=== PATIENT | female | born 1935 | race Caucasian/White ===

== ENCOUNTER → 2018-05-20 10:58 | Outpatient (CLI) | payer MEDICARE, OTHER, SELFPAY ==
--- NOTE | 2018-05-20 12:54 | NEURO ---
NCS and/or EMG Patient Report Ordering Doctor: Chacorta Carnes DATE OF SERVICE: 05/20/18 Alvina Rosario is an 83-year-old female presents for electrodiagnostic testing of the upper limbs. She has chief complaint of numbness and tingling in both hands, worse on the right side. Electrodiagnostic findings: Right median motor nerve demonstrates prolonged distal latency with reduced amplitude. Proximal response could not be obtained. Left median motor nerve demonstrates prolonged distal latency with borderline reduced amplitude. Proximal response could not be obtained. Normal ulnar motor response bilaterally. Prolonged right median F wave. Absent right median sensory latency at the wrist. Prolonged left median sensory response. Normal ulnar and radial sensory responses. Needle EMG testing shows no evidence of denervation with normal motor unit action potentials. Electrodiagnostic impression: This is an abnormal study in the upper limbs. 1. Electrodiagnostic findings demonstrate bilateral median mononeuropathy. This is consistent with a moderate to advanced right carpal tunnel syndrome and a moderate left carpal tunnel syndrome If there are any further questions, please do not hesitate to contact me
== END ==
PROVIDERS: Family Provider Internal Medicine; PCP Internal Medicine; Visit Provider Physician Assistant
DX: R20.2 Paresthesia of skin (principal)
CPT/HCPCS: 95886; 95911

== ENCOUNTER → 2018-05-28 15:33 | Outpatient (CLI) | payer MEDICARE, OTHER, SELFPAY ==
--- NOTE | 2018-05-28 15:39 | RAD_ITS ---
STUDY: X-RAY CHEST REASON FOR EXAM: Female, 83 years old. Night sweats. TECHNIQUE: PA and lateral chest COMPARISON: None. FINDINGS: There is general is mild pulmonary hyperlucency and hyperinflation with flattening of hemidiaphragms, increased AP diameter of the chest, mild diffuse coarsening of the interstitium, and a pattern consistent with underlying COPD/emphysema. Choroid smoking history. Lungs otherwise clear. Normal cardiomediastinal silhouette, virginie and pleural margins. There is no evidence of mediastinal lymphadenopathy. No acute osseous or upper abdominal process. RAD/Chest PA and Lateral IMPRESSION: No acute cardiopulmonary process. Electronically Signed: Eliazar Bruce, at 17:09 EDT Tel , Service support ,
== END ==
PROVIDERS: Family Provider Family Medicine; PCP Family Medicine; Visit Provider Family Medicine
DX: R61 Generalized hyperhidrosis (principal)
CPT/HCPCS: 71046

== ENCOUNTER → 2018-05-29 08:56 | Outpatient (CLI) | payer MEDICARE, OTHER, SELFPAY ==
[2018-05-29 10:31] LABS: Erythrocyte Sedimentation Rate 9 mm/hr (0-30)
[2018-05-29 10:33] LABS: Absolute Lymphocyte Count 1.78 X10^3/ul (0.83-4.51); Absolute Neutrophil Count 2.6 X10^3/uL (2.0-7.7); Basophil# 0.03 X10^3/uL; Basophil% 0.6 % (0-1); Eosinophil# 0.48 X10^3/uL; Eosinophils% 8.9 % (0-5); Hematocrit 39.5 % (37-47); Hemoglobin 12.9 g/dl (12.0-15.0); Lymphocyte # 1.78 X10^3/ul (4.0); Lymphocyte % 33.1 % (19-41); Mean Corp Hgb Conc 32.7 g/gl (32-36); Mean Corpuscular Hgb 29.8 pg (27.0-32.0); Mean Corpuscular Volume 91.2 fL (81-99); Mean Platelet Vol. 10.7 fl (6.2-12.0); Monocyte# 0.46 X10^3/uL; Monocyte% 8.6 % (0-10); Neutrophil # 2.61 X10^3/uL (2.7-7.7); Neutrophil % 48.6 % (47-70); POSITIVE COUNT NO; POSITIVE DIFFERENTIAL NO; POSITIVE MORPHOLOGY NO; Platelet Count 193 K/mm3 (150-450); RBC Distribution Width CV 14.1 % (11.6-14.6); RBC Distribution Width SD 47.6 fl (35.1-43.9); Red Blood Count 4.33 M/mm3 (4.2-5.4); White Blood Count 5.4 K/mm3 (4.4-11.0)
[2018-05-29 10:47] LABS: Microalbumin,Random Urine 8.9 mg/L (NO RANGE EST.); Microalbumin:Creatinine Ratio 6.9 mg/g CRE (<30 mg/g CRE)
[2018-05-29 10:57] LABS: PTHIN 54.9 pg/mL (18.4-80.1); Vitamin B12 401 pg/mL (211-911)
[2018-05-29 11:00] LABS: ALB/GLOB Ratio 1.2 RATIO (0.9-2.4); AST(SGOT) 16 U/L (15-37); Alanine Aminotransfer ALT/SGPT 20 U/L (13-56); Albumin, Serum 3.7 g/dL (3.2-5.0); Alkaline Phosphatase 69 U/L (45-117); Anion Gap 8 (5-15); BUN 18 mg/dL (7-18); BUN/Creat Ratio 20.6 RATIO (10-20); CRP < 2.90 mg/L (0.0-3.0); Calcium,Total 8.6 mg/dL (8.5-10.1); Chloride 111 mmol/L (98-107); Cholesterol 222 mg/dL (200); Creatinine, Serum 0.87 mg/dL (0.55-1.02); EST Glomerular Filtration Rate 66 mL/min (>60); Est Glom Filt Rate - Afr Amer 80 mL/min (>60); Globulin 3.1 g/dL (2.2-4.2); Glucose 79 mg/dL (74-106); High Density Lipoprotein 70 mg/dL; Potassium 4.3 mmol/L (3.5-5.1); Protein, Total 6.8 g/dL (6.4-8.2); Rheumatoid Factor < 10.0 IU/mL (<15); Sodium Level 144 mmol/L (136-145); T4 Free Direct 1.03 ng/dL (0.76-1.46); Thyroid Stim Hormone (TSH) 2.54 uIU/mL (0.358-3.74); Triglycerides 63 mg/dL; Very Low Density Lipoprotein 13 mg/dL (5-40)
[2018-06-04 04:08] LABS: PROEL- Albumin 4.3 g/dL (2.9-4.4); PROEL- Alpha-1 Globulin 0.2 g/dL (0.0-0.4); PROEL- Alpha-2 Globulin 0.6 g/dL (0.4-1.0); PROEL- Beta Globulin 0.9 g/dL (0.7-1.3); PROEL- Gamma Globulin 0.6 g/dL (0.4-1.8); PROEL- Globulin, Total 2.2 g/dL (2.2-3.9); PROEL- TOTAL PROTEIN 6.5 g/dL (6.0-8.5); QNTFERON TB Ag Minus Nil Value 0 IU/mL (.); QNTFERON TB Ag Value 0.06 IU/mL (.); QNTFERON TB Mitogen Value > 10.00 IU/mL (.); QNTFERON TB Nil Value 0.06 IU/mL (.)
[2018-06-05 01:16] LABS: Rapid Plasmin Reagin (RPR) NONREACTIVE (NONREACTIVE)
[2018-06-05 08:18] LABS: Hep C Antibodies <0.1 s/co ratio (0.0-0.9)
[2018-06-05 08:19] LABS: QNTIFERON TB Gold Negative (Negative)
== END ==
PROVIDERS: Family Provider Family Medicine; PCP Family Medicine; Visit Provider Family Medicine
DX: E03.9 Hypothyroidism, unspecified (principal); E78.00 Pure hypercholesterolemia, unspecified; R61 Generalized hyperhidrosis; M54.9 Dorsalgia, unspecified; G56.03 Carpal tunnel syndrome, bilateral upper limbs
CPT/HCPCS: 80053; 80061; 82043; 82570; 82607; 83970; 84165; 84439; 84443; 85025; 85652; 86140; 86431; 86480; 86592; 86803

== ENCOUNTER → 2018-07-14 09:02 | Outpatient (CLI) | payer MEDICARE, OTHER, SELFPAY ==
--- NOTE | 2018-07-14 12:53 | PFT ---
INTRODUCTION: The patient is an 83-year-old female that presents for pulmonary function testing secondary to a diagnosis of COPD. Respiratory therapy reports good patient effort. Bronchodilators were used during testing. INTERPRETATION: Forced expiration spirometry demonstrates no evidence of a large airways obstructive ventilatory defect. There was no significant response to aerosolized bronchodilators, based upon strict ATS criteria. Spirograms are of good quality and plateau normally. Body plethysmography was performed and reveals lung volumes to be within normal limits. Diffusing capacity by single breath CO is within normal limits at 76% of predicted. IMPRESSION: Grossly normal pulmonary function testing. There is no evidence of COPD.
== END ==
PROVIDERS: Family Provider Family Medicine; PCP Family Medicine; Referring Provider Family Medicine; Visit Provider Family Medicine
DX: J44.9 Chronic obstructive pulmonary disease, unspecified (principal)
CPT/HCPCS: 94060; 94726; 94729

== ENCOUNTER → 2018-08-27 07:47 | Outpatient (CLI) | payer MEDICARE, OTHER, SELFPAY ==
--- NOTE | 2018-08-27 07:50 | CT_ITS ---
STUDY: CT CHEST WITHOUT CONTRAST REASON FOR EXAM: Female, 83 years old. Chronic cough, difficulty breathing, cough worse in the mornings. Possible COPD. Nonsmoker. Prior cholecystectomy. RADIATION DOSAGE (If Supplied By Facility): CTDIvol = ( 8.65 ) mGy, DLP = ( 300.5 ) mGycm TECHNIQUE: Transaxial imaging was performed without the administration of intravenous contrast material. : Sagittal 2-D MPR Individualized dose optimization techniques were used for this CT. COMPARISON: Chest x-ray 05/28/2018 FINDINGS: Supraclavicular: No acute process. Thoracic body wall soft tissues: No acute process. Upper abdomen: Limited evaluation. Cholecystectomy. No acute process. Osseous structures: No acute process. Thoracic kyphosis, mild thoracic spondylosis without stenosis. There is evidence of prominent low cervical spondylosis incompletely characterized at the apex of the field of view. Mediastinum: Normal esophagus. There is no mediastinal or hilar mass or lymphadenopathy. Heart: Normal heart size without pericardial effusion. Minimal coronary calcifications are visible in the proximal LAD. Aorta: Nondilated, minimal atherosclerosis. Pulmonary arteries: Nondilated. Lungs: Mild apical scarring. Normal airways. There is mild generalized pulmonary hyperlucency which may reflect mild COPD without lidia features of centrilobular or paraseptal emphysema. CT/Chest without Contrast IMPRESSION: No acute cardiopulmonary process is evident. Mild generalized pulmonary hyperlucency potentially reflecting mild COPD. No apparent acute abnormality of the airways. No infiltrate of the lungs. No evidence of acute pneumonia or bronchiolitis. Minimal coronary calcifications of the proximal LAD. Electronically Signed: Eliazar Bruce MD at 12:04 EST Tel , Service support ,
== END ==
PROVIDERS: Family Provider Family Medicine; PCP Family Medicine; Referring Provider Family Medicine; Visit Provider Family Medicine
DX: R05 Cough (principal)
CPT/HCPCS: 71250

== ENCOUNTER → 2018-11-10 16:45 | Outpatient (CLI) | payer MEDICARE, OTHER, SELFPAY ==
[2018-09-29 11:14] VITALS: BMI 27.4
[2018-11-10 17:46] LABS: Hematocrit 40.6 % (37-47); Hemoglobin 13.2 g/dl (12.0-15.0); Mean Corp Hgb Conc 32.5 g/gl (32-36); Mean Corpuscular Hgb 29.9 pg (27.0-32.0); Mean Corpuscular Volume 92.1 fL (81-99); Mean Platelet Vol. 10.4 fl (6.2-12.0); Platelet Count 275 K/mm3 (150-450); RBC Distribution Width CV 13.4 % (11.6-14.6); RBC Distribution Width SD 44.1 fl (35.1-43.9); Red Blood Count 4.41 M/mm3 (4.2-5.4); White Blood Count 6.7 K/mm3 (4.4-11.0)
[2018-11-10 17:47] LABS: Scan Indicated on CBC? Y/N NO
[2018-11-10 18:19] LABS: Thyroid Stim Hormone (TSH) 2.07 uIU/mL (0.358-3.74)
== END ==
PROVIDERS: Family Provider Family Medicine; PCP Family Medicine; Referring Provider Family Medicine; Visit Provider Nurse Practitioner Family
DX: R53.83 Other fatigue (principal)
CPT/HCPCS: 36415; 84443; 85027

== ENCOUNTER → 2019-04-29 | Outpatient (CLI) | payer MEDICARE, OTHER, SELFPAY ==
[2019-02-05 10:47] VITALS: BMI 28.1
[2019-04-29 17:25] LABS: Absolute Lymphocyte Count 1.69 X10^3/uL (0.83-4.51); Absolute Neutrophil Count 3.3 X10^3/uL (2.0-7.7); Basophil# 0.04 X10^3/uL; Basophil% 0.7 % (0-1); Eosinophil# 0.33 X10^3/uL; Eosinophils% 5.6 % (0-5); Hematocrit 40.9 % (37-47); Hemoglobin 13.2 g/dL (12.0-15.0); Lymphocyte # 1.69 X10^3/ul (4.0); Lymphocyte % 28.5 % (19-41); Mean Corp Hgb Conc 32.3 g/dL (32-36); Mean Corpuscular Hgb 30.1 pg (27.0-32.0); Mean Corpuscular Volume 93.2 fL (81-99); Mean Platelet Vol. 10.8 fl (6.2-12.0); Monocyte# 0.54 X10^3/uL; Monocyte% 9.1 % (0-10); NRBC Flagged by Analyzer 0 % (0-5); Neutrophil # 3.32 X10^3/uL (2.7-7.7); Neutrophil % 55.8 % (47-70); Platelet Count 207 K/mm3 (150-450); RBC Distribution Width SD 47.9 fl (35.1-43.9); Red Blood Count 4.39 M/mm3 (4.2-5.4); White Blood Count 5.9 K/mm3 (4.4-11.0)
[2019-04-29 17:55] LABS: Vitamin B12 700 pg/mL (211-911)
[2019-04-29 18:43] LABS: CRP < 2.90 mg/L (0.0-3.0); Ferritin 299 ng/mL (8-252); Free T3 2.5 pg/mL (2.18-3.98); Lipase 142 U/L (73-393); T4 Free Direct 1.05 ng/dL (0.76-1.46); Thyroid Stim Hormone (TSH) 2.23 uIU/mL (0.358-3.74)
[2019-05-05 09:57] LABS: Zinc, Plasma or Serum 93 ug/dL (56-134)
[2019-05-09 09:10] LABS: Immunoglobulin E 102 IU/mL (6-495)
== END | disposition home or self-care (01) ==
PROVIDERS: Family Provider Family Medicine; PCP Family Medicine; Referring Provider Family Medicine; Visit Provider Family Medicine
DX: R61 Generalized hyperhidrosis (principal); E03.9 Hypothyroidism, unspecified; R19.5 Other fecal abnormalities; R53.81 Other malaise; R53.83 Other fatigue
CPT/HCPCS: 36415; 82607; 82728; 82746; 82785; 83690; 84439; 84443; 84481; 84630; 85025; 86140

== ENCOUNTER → 2019-04-30 | Outpatient (CLI) | payer MEDICARE, OTHER, SELFPAY ==
[2019-02-05 10:47] VITALS: BMI 28.1
== END | disposition home or self-care (01) ==
LOC: LABSPEC 14:52
PROVIDERS: Family Provider Family Medicine; PCP Family Medicine; Referring Provider Family Medicine; Visit Provider Family Medicine
DX: R19.5 Other fecal abnormalities (principal)
CPT/HCPCS: 83630

== ENCOUNTER 2019-07-15 13:36 | Emergency (ER) | payer MEDICARE, OTHER, SELFPAY ==
[2019-02-05 10:47] VITALS: BMI 28.1
[2019-07-15 13:37] VITALS: BP 103/61; PULSE 56; RESP 18; TEMP 36.6; O2SAT 96; BMI 29.4
--- NOTE | 2019-07-15 14:01 | EKG12_ITS ---
Test Reason : CP Blood Pressure : / mmHG Vent. Rate : 057 BPM Atrial Rate : 057 BPM P-R Int : 152 ms QRS Dur : 084 ms QT Int : 444 ms P-R-T Axes : 028 -19 023 degrees QTc Int : 432 ms Sinus bradycardia Otherwise normal ECG Confirmed by TIA MAYORGA, MY ([id number]), newspaper or periodical editor INDY HAMPTON ([id number]) on 07/20/2019 2:36:34 PM Referred By: GISEL Confirmed By:MY WEBER MD
--- NOTE | 2019-07-15 14:04 | RAD_ITS ---
STUDY: X-RAY CHEST REASON FOR EXAM: Female, 84 years old. Chest pain. TECHNIQUE: Single AP portable view of the chest. COMPARISON: Comparison is made with prior study dated May 28, 2018. FINDINGS: EKG electrodes are seen. Scattered calcified granulomas. The lungs are clear. There is no demonstrated pleural abnormality. Normal size heart. Normal mediastinum and virginie. Normal visualized pulmonary arteries. There is atherosclerotic calcification of the aortic arch with tortuosity. There are diffuse degenerative changes of the visualized thoracic spine. Normal visualized ribs, clavicles, and shoulders. There is no demonstrated abnormality of the visualized soft tissue structures of the upper abdomen. RAD/Chest 1 View (Portable) IMPRESSION: No acute abnormality is seen. Electronically Signed: José Levin, at 14:29 EST , Service support ,
--- NOTE | 2019-07-15 14:06 | ED.VIS.GEN ---
History of Present Illness Chief Complaint: Chest Pain Informant: Patient Onset: Today Timing: Waxes and wanes Current Severity: Mild Maximum Severity: Moderate Narrative: Patient presents with chest pain which she describes as spasms up to the center of her chest and into her jaw. She states she first noted it last night after she was laying down in bed. She felt chills at the same time and took some aspirin. Today around 12:00 she developed recurrent symptoms. She tried aspirin but noted no improvement. She states her throat felt very tight and she got short of breath and anxious. EMS was called. She was given 1 nitroglycerin with squad and her blood pressure decreased to 80 over palp. Blood pressure has responded well with IV fluids. Patient denies significant cardiac history. She states she has had a stress test and heart cath in the past. She does report a history of reflux but just takes Tums when she feels like she needs it. Past Medical History - Allergies and Home Meds Allergies/Adverse Reactions: Allergies ciprofloxacin Allergy (Severe, Verified 07/15/19 13:41) headaches melatonin Adverse Reaction (Severe, Verified 07/15/19 13:41) Anaphylaxis Vvpzpln-Pmk-Kxh Reductase Inhibitor Adverse Reaction (Severe, Verified 07/15/19 13:41) confusion Primary Care Physician: Abdiel Salazar MD [Primary Care Provider] - Prior records reviewed: Yes Past Medical History: - - Reviewed Lives: Spouse/ Significant Other Smoking Status: Never smoker Review of Systems General: Reports: Chills. Denies: Fever Eyes: Denies: Visual changes - bilaterally ENT: Denies: Bilateral ear pain Cardiovascular: Reports: Chest pain. Denies: Palpitations, Heart racing Respiratory: Reports: Dyspnea. Denies: Cough Gastrointestinal: Reports: Abdominal pain - Epigastric pain. Denies: Vomiting, Diarrhea Genitourinary: Denies: Dysuria Musculoskeletal: Reports: Neck pain - Chest pain up into her jaw Skin: Denies: Rash Neurological: Denies: Headache Hematologic: Denies: Easy bruising Allergy: Denies: Uticaria Physical Exam Vital Signs/Narrative: Vital Signs Temp Pulse Resp BP Pulse Ox 07/15/19 13:37 97.9 F 56 L 18 103/61 96 Inital Vital Signs reviewed: Yes General: Well nourished, Well developed Head: Normocephalic ENT: Moist mucous membranes Neck: Supple Cardiovascular: Regular rate, Regular rhythm Respiratory: No distress, CTA bilaterally Abdomen: Soft, Nontender, Hypoactive bowel sounds Extremities: Nontender Skin: Normal color, No rash Neurological: Alert, Oriented x3 Psychological: Normal affect Diagnostic/Tx/Re-eval Impressions Chest X-Ray 07/15/19 14:04 IMPRESSION: No acute abnormality is seen. Electronically Signed: José Levin, at 14:29 EST , Service support , 07/15/19 14:04 Chest 1 View (Portable) [RAD] Stat Laboratory Results 07/15/19 07/15/19 07/15/19 13:55 13:55 17:15 WBC 8.5 RBC 4.14 L Hgb 12.6 Hct 37.8 MCV 91.3 MCH 30.4 MCHC 33.3 RDW Std Deviation 45.8 H RDW Coeff of Kimber 13.4 Plt Count 230 MPV 10.4 Immature Gran % (Auto) 0.600 Neut % (Auto) 54.4 Lymph % (Auto) 34.4 Woodford % (Auto) 7.9 Eos % (Auto) 2.1 Baso % (Auto) 0.6 Absolute Neuts (auto) 4.6 Absolute Lymphs (auto) 2.93 Nucleated RBC % 0 Sodium 141 Potassium 3.7 Chloride 108 H Carbon Dioxide 22.0 Anion Gap 11 BUN 23 H Creatinine 0.96 Estim Creat Clear Calc 36.09 Est GFR (MDRD) Af Amer 72 Est GFR (MDRD) Non-Af 59 L BUN/Creatinine Ratio 24.1 H Glucose 125 H Calcium 9.4 Troponin I < 0.015 < 0.015 - EKG Initial EKG Interpretation: Sinus Bradycardia - Sinus bradycardia 57 bpm with no acute ischemia. Follow-up EKG Interpretation: Sinus Bradycardia - Sinus bradycardia 57 bpm with no acute ischemia. - Medical Decision Making Patient was given aspirin by EMS prior to arrival. She was given IV fluids and a dose of IV Protonix while here. On repeat evaluation she is resting pain-free. I advised her at this time I cannot guarantee that her symptoms are not cardiac in nature. I recommended observation overnight for cycling of enzymes and probable stress test in the morning. She is refusing admission at this time because it will only be an observation stay and will not be covered with her Medicare. She did agree to stay for 3-hour repeat study. Repeat troponin remains less than 0.015 and repeat EKG is unchanged. Patient's is picking up Nexium at the pharmacy for her to take for reflux. She will return for any worsening symptoms or concerns. ED Disposition - Plan for ED Patient: Disposition: Home or Assisted Living Diagnosis: Chest pain Instructions: CHEST PAIN, Uncertain Cause Referrals: Abdiel Salazar MD [Primary Care Provider] - As soon as possible
[2019-07-15 14:26] LABS: Absolute Lymphocyte Count 2.93 X10^3/uL (0.83-4.51); Absolute Neutrophil Count 4.6 X10^3/uL (2.0-7.7); Basophil# 0.05 X10^3/uL; Basophil% 0.6 % (0-1); Eosinophil# 0.18 X10^3/uL; Eosinophils% 2.1 % (0-5); Hematocrit 37.8 % (37-47); Hemoglobin 12.6 g/dL (12.0-15.0); Lymphocyte # 2.93 X10^3/ul (4.0); Lymphocyte % 34.4 % (19-41); Mean Corp Hgb Conc 33.3 g/dL (32-36); Mean Corpuscular Hgb 30.4 pg (27.0-32.0); Mean Corpuscular Volume 91.3 fL (81-99); Mean Platelet Vol. 10.4 fl (6.2-12.0); Monocyte# 0.67 X10^3/uL; Monocyte% 7.9 % (0-10); NRBC Flagged by Analyzer 0 % (0-5); Neutrophil # 4.64 X10^3/uL (2.7-7.7); Neutrophil % 54.4 % (47-70); Platelet Count 230 K/mm3 (150-450); RBC Distribution Width CV 13.4 % (11.6-14.6); RBC Distribution Width SD 45.8 fl (35.1-43.9); Red Blood Count 4.14 M/mm3 (4.2-5.4); White Blood Count 8.5 K/mm3 (4.4-11.0)
[2019-07-15 14:38] LABS: Anion Gap 11 (5-15); BUN 23 mg/dL (7-18); BUN/Creat Ratio 24.1 RATIO (10-20); Calcium,Total 9.4 mg/dL (8.5-10.1); Chloride 108 mmol/L (98-107); Creatinine, Serum 0.96 mg/dL (0.55-1.02); EST Glomerular Filtration Rate 59 mL/min (>60); Est Glom Filt Rate - Afr Amer 72 mL/min (>60); Estimated Creatinine Clearance 36.09 ml/min; Glucose 125 mg/dL (74-106); Potassium 3.7 mmol/L (3.5-5.1); Sodium Level 141 mmol/L (136-145)
[2019-07-15 14:55] VITALS: BP 113/64; PULSE 50; RESP 18; O2SAT 97
[2019-07-15] MEDS: 0.9% Normal Saline 1,000 ML 150 ML IV (15:17)
--- NOTE | 2019-07-15 15:52 | EKG12_ITS ---
Test Reason : REPEAT EKG Blood Pressure : / mmHG Vent. Rate : 057 BPM Atrial Rate : 057 BPM P-R Int : 140 ms QRS Dur : 086 ms QT Int : 446 ms P-R-T Axes : 039 -15 030 degrees QTc Int : 434 ms Sinus bradycardia Low voltage QRS Cannot rule out Anterior infarct , age undetermined Abnormal ECG Confirmed by TIA MAYORGA, MY ([id number]), production editor INDY HAMPTON ([id number]) on 07/20/2019 2:37:38 PM Referred By: Confirmed By:MY WEBER MD
[2019-07-15 17:32] VITALS: BP 132/67; PULSE 69; RESP 18; O2SAT 99
== END 2019-07-15 18:45 | disposition home or self-care (01) ==
PROVIDERS: Emergency Provider Emergency Medicine; Family Provider Family Medicine; PCP Family Medicine
DX: R07.9 Chest pain, unspecified (principal)
CPT/HCPCS: 71045; 80048; 84484; 85025; 93005; 96361; 96365; 99285; J7030

== ENCOUNTER → 2019-07-23 | Outpatient (CLI) | payer MEDICARE, OTHER, SELFPAY ==
[2019-07-15 13:37] VITALS: BMI 29.4
[2019-07-23 14:25] LABS: Absolute Lymphocyte Count 1.68 X10^3/uL (0.83-4.51); Basophil# 0.05 X10^3/uL; Basophil% 0.6 % (0-1); Eosinophil# 0.17 X10^3/uL; Eosinophils% 2.2 % (0-5); Hematocrit 38.9 % (37-47); Hemoglobin 12.4 g/dL (12.0-15.0); Lymphocyte # 1.68 X10^3/ul (4.0); Lymphocyte % 21.7 % (19-41); Mean Corp Hgb Conc 31.9 g/dL (32-36); Mean Corpuscular Hgb 29.8 pg (27.0-32.0); Mean Corpuscular Volume 93.5 fL (81-99); Mean Platelet Vol. 10.9 fl (6.2-12.0); Monocyte% 10.3 % (0-10); NRBC Flagged by Analyzer 0 % (0-5); Neutrophil # 4.98 X10^3/uL (2.7-7.7); Neutrophil % 64.3 % (47-70); Platelet Count 239 K/mm3 (150-450); RBC Distribution Width CV 14.3 % (11.6-14.6); RBC Distribution Width SD 48.9 fl (35.1-43.9); Red Blood Count 4.16 M/mm3 (4.2-5.4); White Blood Count 7.8 K/mm3 (4.4-11.0)
[2019-07-23 14:28] LABS: ALB/GLOB Ratio 1.2 RATIO (0.9-2.4); AST(SGOT) 15 U/L (15-37); Alanine Aminotransfer ALT/SGPT 26 U/L (13-56); Albumin, Serum 3.8 g/dL (3.2-5.0); Alkaline Phosphatase 72 U/L (45-117); Anion Gap 7 (5-15); BUN 27 mg/dL (7-18); Calcium,Total 8.8 mg/dL (8.5-10.1); Chloride 108 mmol/L (98-107); Creatinine, Serum 1.04 mg/dL (0.55-1.02); EST Glomerular Filtration Rate 54 mL/min (>60); Est Glom Filt Rate - Afr Amer 65 mL/min (>60); Globulin 3.2 g/dL (2.2-4.2); Glucose 94 mg/dL (74-106); Sodium Level 141 mmol/L (136-145)
[2019-07-25 20:10] LABS: Alternaria tenuis <0.10 kU/L (Class 0); Ash, White <0.10 kU/L (Class 0); Aspergillus fumigatus <0.10 kU/L (Class 0); Bermuda Grass <0.10 kU/L (Class 0); Birch <0.10 kU/L (Class 0); Black Walnut <0.10 kU/L (Class 0); Cat Hair / Dander,Stand <0.10 kU/L (Class 0); Cedar, Mountain <0.10 kU/L (Class 0); Cladosporium herbarum <0.10 kU/L (Class 0); Cockroach, American <0.10 kU/L (Class 0); Cottonwood <0.10 kU/L (Class 0); D farinae Mite <0.10 kU/L (Class 0); D pteronyssinus <0.10 kU/L (Class 0); Dog Epithelia <0.10 kU/L (Class 0); Elm, American White <0.10 kU/L (Class 0); Immunoglobulin E 179 IU/mL (6-495); Maple/Box Elder <0.10 kU/L (Class 0); Mulberry, White <0.10 kU/L (Class 0); Oak, White <0.10 kU/L (Class 0); Pecan <0.10 kU/L (Class 0); Penicillium Notatum <0.10 kU/L (Class 0); Pigweed, Rough <0.10 kU/L (Class 0); Ragweed, Short/Common <0.10 kU/L (Class 0); Russian Thistle <0.10 kU/L (Class 0); Sheep Sorrel <0.10 kU/L (Class 0); Sycamore, American <0.10 kU/L (Class 0); Timothy Grass <0.10 kU/L (Class 0)
[2019-07-26 04:10] LABS: Beef <0.10 kU/L (Class 0); Chocolate <0.10 kU/L (Class 0); Corn <0.10 kU/L (Class 0); Egg, Whole 0.29 kU/L (Class 0/I); Milk (Cow) <0.10 kU/L (Class 0); Peanut <0.10 kU/L (Class 0); Pork <0.10 kU/L (Class 0); Soybean <0.10 kU/L (Class 0); Wheat <0.10 kU/L (Class 0)
[2019-07-26 13:42] LABS: Mouse Urine <0.10 kU/L (Class 0)
[2019-07-26 13:43] LABS: Pecan <0.10 kU/L (Class 0)
== END | disposition home or self-care (01) ==
LOC: MFPLAB 11:29
PROVIDERS: Family Provider Family Medicine; PCP Family Medicine; Referring Provider Family Medicine; Visit Provider Family Medicine
DX: T78.3XXA Angioneurotic edema, initial encounter (principal)
CPT/HCPCS: 36415; 80053; 82785; 85025; 86003; 86005

== ENCOUNTER → 2019-10-05 14:13 | Outpatient (CLI) | payer MEDICARE, OTHER, SELFPAY ==
[2019-10-05 16:32] LABS: Vitamin D,25 Hydroxy 33.5 ng/mL (29.95-100.01)
[2019-10-08 13:21] LABS: Lyme AB/Total Immuno < 0.91 ISR (0.00-0.90)
[2019-10-08 19:29] LABS: C1 EST Inhibitor, Functional >92 (.)
== END ==
PROVIDERS: PCP Family Medicine; Referring Provider Specialist; Visit Provider Specialist
DX: J30.9 Allergic rhinitis, unspecified (principal); J45.50 Severe persistent asthma, uncomplicated; J32.9 Chronic sinusitis, unspecified; E55.9 Vitamin D deficiency, unspecified; E07.9 Disorder of thyroid, unspecified; R06.00 Dyspnea, unspecified; T78.3XXD Angioneurotic edema, subsequent encounter; T78.09XD Anaphylactic reaction due to other food products, subsequent encounter; Z91.038 Other insect allergy status
CPT/HCPCS: 36415; 82306; 83520; 86160; 86161; 86618

== ENCOUNTER → 2020-05-26 11:12 | Outpatient (CLI) | payer MEDICARE, OTHER, SELFPAY ==
[2020-05-26 12:33] LABS: Erythrocyte Sedimentation Rate 37 mm/hr (0-30)
[2020-05-26 12:36] LABS: Absolute Lymphocyte Count 1.67 X10^3/uL (0.83-4.51); Absolute Neutrophil Count 5.1 X10^3/uL (2.0-7.7); Basophil# 0.06 X10^3/uL; Basophil% 0.7 % (0-1); Eosinophil# 0.24 X10^3/uL; Hematocrit 37.1 % (37-47); Hemoglobin 12.2 g/dL (12.0-15.0); Lymphocyte # 1.67 X10^3/ul (4.0); Lymphocyte % 20.6 % (19-41); Mean Corp Hgb Conc 32.9 g/dL (32-36); Mean Corpuscular Hgb 29.5 pg (27.0-32.0); Mean Corpuscular Volume 89.8 fL (81-99); Mean Platelet Vol. 10.5 fl (6.2-12.0); Monocyte# 0.98 X10^3/uL; Monocyte% 12.1 % (0-10); NRBC Flagged by Analyzer 0 % (0-5); Neutrophil # 5.13 X10^3/uL (2.7-7.7); Neutrophil % 63.2 % (47-70); Platelet Count 234 K/mm3 (150-450); RBC Distribution Width CV 13.5 % (11.6-14.6); RBC Distribution Width SD 44.5 fl (35.1-43.9); Red Blood Count 4.13 M/mm3 (4.2-5.4); White Blood Count 8.1 K/mm3 (4.4-11.0)
[2020-05-26 12:52] LABS: ALB/GLOB Ratio 0.9 RATIO (0.9-2.4); AST(SGOT) 20 U/L (15-37); Alanine Aminotransfer ALT/SGPT 43 U/L (13-56); Albumin, Serum 3.5 g/dL (3.2-5.0); Alkaline Phosphatase 77 U/L (45-117); Anion Gap 6 (5-15); BUN 17 mg/dL (7-18); Calcium,Total 8.8 mg/dL (8.5-10.1); Chloride 106 mmol/L (98-107); EST Glomerular Filtration Rate 64 mL/min (>60); Est Glom Filt Rate - Afr Amer 77 mL/min (>60); Globulin 3.7 g/dL (2.2-4.2); Glucose 95 mg/dL (74-106); Potassium 3.9 mmol/L (3.5-5.1); Protein, Total 7.2 g/dL (6.4-8.2); Sodium Level 139 mmol/L (136-145)
== END ==
PROVIDERS: PCP Family Medicine; Referring Provider Family Medicine; Visit Provider Family Medicine
DX: K57.32 Diverticulitis of large intestine without perforation or abscess without bleeding (principal)
CPT/HCPCS: 36415; 80053; 85025; 85652; 86140

== ENCOUNTER → 2020-06-16 14:46 | Outpatient (CLI) | payer MEDICARE, OTHER, SELFPAY ==
--- NOTE | 2020-06-16 14:51 | CT_ITS ---
STUDY: CT ABDOMEN AND PELVIS WITHOUT CONTRAST REASON FOR EXAM: Female, 85 years old. Left lower quadrant pain history of diverticulitis, History of appendectomy hysterectomy and cholecystectomy. RADIATION DOSAGE (If Supplied By Facility): CTDIvol = ( 6.37 ) mGy, DLP = ( 301.00 ) mGycm TECHNIQUE: Transaxial images were obtained from the dome of the diaphragm to the symphysis pubis without oral contrast, and without intravenous contrast. Sagittal and coronal images were reconstructed. Individualized dose optimization techniques were used for this CT. COMPARISON: None. FINDINGS: Lung bases are clear. Solid organs are intact. Gallbladder is removed. There is no intestinal obstruction. There is minor left lower quadrant sigmoid diverticulitis without perforation or abscess with extensive sigmoid diverticulosis. Uterus and appendix are removed. CT/Abdomen/Pelvis without Cont IMPRESSION: Minimal left lower quadrant sigmoid diverticulitis. Electronically Signed: Gerardo Baig, at 15:37 EDT Tel , Service support ,
== END ==
PROVIDERS: PCP Family Medicine; Referring Provider Family Medicine; Visit Provider Family Medicine
DX: K57.32 Diverticulitis of large intestine without perforation or abscess without bleeding (principal)
CPT/HCPCS: 74176

== ENCOUNTER 2020-06-29 13:30 | Outpatient (RCR) | payer MEDICARE, OTHER, SELFPAY ==
--- NOTE | 2020-06-16 08:08 | HP.OTEVAL_ITS ---
Patient's Visit Information SIERRA PEREZ is a 85 year old F, referred to Occupational Therapy by Dr. Fabien Lowry MD, with a diagnosis of CTR. Date of Evaluation: 06/08/20 Occupational Therapist: Jeannine Win, OTR/Silvestre, CHT - Subjective This 85 year old female was seen for OT eval with dx of right CTS and s/p 7 weeks and 6 days s/p from a right CTR. pt states she continues to have pain and sorness at the incision and on her wrist- pt states fabric even will increase her pain when she tries to sleep. Pt states she had issues with tingling/numbness for about two years. 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 Goal:: Pt will demo an increase in wrist ROM equal to unaffected wrist to return pt to PLOF with grooming, dressing and home mtg tasks by D/C. Goal:: Pt will report pain no greater than 1/10 with use of affected hand with BADLs and IADLs by d/c. Goal:: Pt will demo understanding of scar mtg. by end of 2nd session to increase tissue extensibility to limit scar adhesions and allow full tendons function by d/c. Pt will demo a decrease is scar sensitivity to tolerate wearing long sleeve shirts by D/c. - Rehabilitation General Assessment: pt demo with a weak right lamp cleaner strength and scar pain limiting use of right UE with ADLs and IADLs. pt would benefit from skilled OT services 1-2x week for 4 weeks to retun pt to PLOF. Rehabilitation Potential: Good - Anticipated Interventions A/AAROM/PROM, Strengthening, Scar Care, Desensitization, Modalities, Joint Protection/Energy Conservation, Education re assistive Equipment - Visit Plan Frequency: 1-2x /Week Duration: 4 Weeks TEXT: Thank you for the opportunity to evaluate your patient. For Medicare and Medicare HMO plans, please review the plan of care and approve it. It will need to be FAXED BACK to us at [phone] for Medicare purposes. Please let me know if there are questions or concerns regarding this plan of care. Physician Signature: Date:
--- NOTE | 2020-06-29 14:04 | HP.OTDCSUM_ITS ---
It has been my pleasure to treat SIERRA PEREZ under orders from Dr. Fabien Lowry MD, for the diagnosis of CTR for a total of 4 visit(s). Please see the following information for a summary of their discharge status. 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 Goal:: Pt will demo an increase in wrist ROM equal to unaffected wrist to return pt to PLOF with grooming, dressing and home mtg tasks by D/C. Goal:: Pt will report pain no greater than 1/10 with use of affected hand with BADLs and IADLs by d/c. Goal:: Pt will demo understanding of scar mtg. by end of 2nd session to increase tissue extensibility to limit scar adhesions and allow full tendons function by d/c. Pt will demo a decrease is scar sensitivity to tolerate wearing long sleeve shirts by D/c. Plan: D/C Discharge Comments: pt was seen for 4 visits- states she is feeling better and her scar is not as sore. pt reports she is ind. with ADLs and IADls at this time and agree to cont with HEP of scar mtg. pt has met OT goals and is dc at this time If there are questions or concerns regarding this patient's occupational t herapy, please fell free to call me at [phone]. Thank you for the referral of this patient. Sincerely, Jeannine Win, OTR/L, CHT
== END 2020-06-29 19:00 | disposition home or self-care (01) ==
LOC: OT 13:30
PROVIDERS: PCP Family Medicine; Referring Provider Orthopaedic Surgery; Visit Provider Orthopaedic Surgery
DX: G56.01 Carpal tunnel syndrome, right upper limb (principal)
CPT/HCPCS: 97035; 97110; 97166; 97530

== ENCOUNTER → 2020-07-11 15:46 | Outpatient (CLI) | payer MEDICARE, OTHER, SELFPAY ==
[2020-07-11 17:29] LABS: Absolute Lymphocyte Count 1.84 X10^3/uL (0.83-4.51); Absolute Neutrophil Count 2.9 X10^3/uL (2.0-7.7); Basophil# 0.06 X10^3/uL; Eosinophil# 0.28 X10^3/uL; Eosinophils% 4.9 % (0-5); Hematocrit 38.6 % (37-47); Hemoglobin 12.2 g/dL (12.0-15.0); Lymphocyte # 1.84 X10^3/ul (4.0); Lymphocyte % 32.1 % (19-41); Mean Corp Hgb Conc 31.6 g/dL (32-36); Mean Corpuscular Hgb 29.2 pg (27.0-32.0); Mean Corpuscular Volume 92.3 fL (81-99); Mean Platelet Vol. 10.6 fl (6.2-12.0); Monocyte# 0.61 X10^3/uL; Monocyte% 10.6 % (0-10); NRBC Flagged by Analyzer 0 % (0-5); Neutrophil # 2.92 X10^3/uL (2.7-7.7); Neutrophil % 50.9 % (47-70); Platelet Count 230 K/mm3 (150-450); RBC Distribution Width CV 14.3 % (11.6-14.6); RBC Distribution Width SD 49.2 fl (35.1-43.9); Red Blood Count 4.18 M/mm3 (4.2-5.4); White Blood Count 5.7 K/mm3 (4.4-11.0)
[2020-07-11 17:41] LABS: Erythrocyte Sedimentation Rate 11 mm/hr (0-30)
[2020-07-11 18:03] LABS: ALB/GLOB Ratio 1.2 RATIO (0.9-2.4); AST(SGOT) 21 U/L (15-37); Alanine Aminotransfer ALT/SGPT 29 U/L (13-56); Albumin, Serum 3.8 g/dL (3.2-5.0); Alkaline Phosphatase 90 U/L (45-117); Anion Gap 5 (5-15); BUN 25 mg/dL (7-18); BUN/Creat Ratio 25.5 RATIO (10-20); CRP < 2.90 mg/L (0.0-3.0); Calcium,Total 9.3 mg/dL (8.5-10.1); Chloride 109 mmol/L (98-107); Creatinine, Serum 0.98 mg/dL (0.55-1.02); EST Glomerular Filtration Rate 57 mL/min (>60); Est Glom Filt Rate - Afr Amer 69 mL/min (>60); Globulin 3.2 g/dL (2.2-4.2); Glucose 89 mg/dL (74-106); Lipase 180 U/L (73-393); Potassium 4.2 mmol/L (3.5-5.1); Sodium Level 140 mmol/L (136-145)
== END ==
PROVIDERS: PCP Family Medicine; Referring Provider Family Medicine; Visit Provider Family Medicine
DX: R10.13 Epigastric pain (principal)
CPT/HCPCS: 36415; 80053; 83690; 85025; 85652; 86140

== ENCOUNTER → 2020-07-12 17:37 | Outpatient (CLI) | payer MEDICARE, OTHER, SELFPAY ==
[2020-07-18 06:31] LABS: H. PYLORI STOOL AG Negative (Negative)
== END ==
PROVIDERS: PCP Family Medicine; Referring Provider Family Medicine; Visit Provider Family Medicine
DX: R10.13 Epigastric pain (principal)

== ENCOUNTER 2021-11-05 12:14 | Outpatient (CLI) | payer MEDICARE, OTHER, SELFPAY ==
--- NOTE | 2021-11-05 12:17 | RAD_ITS ---
STUDY: X-RAY CHEST REASON FOR EXAM: Female, 86 years old. COUGH TECHNIQUE: Single AP portable view of the chest. COMPARISON: July 15, 2019 FINDINGS: The lungs are clear and expanded. There is no demonstrated pleural abnormality. Normal size heart. Normal mediastinum and virginie. Normal visualized pulmonary arteries. There is atherosclerotic calcification of the aortic arch with tortuosity. There are diffuse degenerative changes of the visualized thoracic spine. Normal visualized ribs, clavicles, and shoulders. Right upper quadrant surgical clips are present. There is no demonstrated abnormality of the visualized soft tissue structures of the upper abdomen. RAD/Chest PA and Lateral IMPRESSION: Degenerative changes, as described above. No demonstrated acute cardiopulmonary process. Electronically Signed: Chicho Jay MD at 14:03 EST ,
[2021-11-05 15:29] LABS: Absolute Lymphocyte Count 1.26 X10^3/uL (0.83-4.51); Absolute Neutrophil Count 8.1 X10^3/uL (2.0-7.7); Basophil# 0.06 X10^3/uL; Basophil% 0.5 % (0-1); Eosinophil# 0.47 X10^3/uL; Eosinophils% 4.1 % (0-5); Hematocrit 34.7 % (37-47); Hemoglobin 11.3 g/dL (12.0-15.0); Lymphocyte # 1.26 X10^3/ul (0.83-4.51); Mean Corp Hgb Conc 32.6 g/dL (32-36); Mean Corpuscular Hgb 29.4 pg (27.0-32.0); Mean Corpuscular Volume 90.1 fL (81-99); Mean Platelet Vol. 10.3 fl (6.2-12.0); Monocyte# 1.31 X10^3/uL; Monocyte% 11.4 % (0-10); NRBC Flagged by Analyzer 0 % (0-5); Neutrophil # 8.05 X10^3/uL (2.7-7.7); Neutrophil % 70.4 % (47-70); Platelet Count 308 K/mm3 (150-450); RBC Distribution Width CV 13.1 % (11.6-14.6); RBC Distribution Width SD 43.2 fl (35.1-43.9); Red Blood Count 3.85 M/mm3 (4.2-5.4); White Blood Count 11.5 K/mm3 (4.4-11.0)
[2021-11-05 16:13] LABS: ALB/GLOB Ratio 0.7 RATIO (0.9-2.4); AST(SGOT) 21 U/L (15-37); Alanine Aminotransfer ALT/SGPT 28 U/L (13-56); Albumin, Serum 2.9 g/dL (3.2-5.0); Alkaline Phosphatase 71 U/L (45-117); Anion Gap 5 (5-15); BUN 17 mg/dL (7-18); BUN/Creat Ratio 16.5 RATIO (10-20); Calcium,Total 8.6 mg/dL (8.5-10.1); Chloride 105 mmol/L (98-107); Creatinine, Serum 1.03 mg/dL (0.55-1.02); EST Glomerular Filtration Rate 54 mL/min (>60); Est Glom Filt Rate - Afr Amer 65 mL/min (>60); Globulin 3.9 g/dL (2.2-4.2); Glucose 103 mg/dL (74-106); Potassium 3.8 mmol/L (3.5-5.1); Protein, Total 6.8 g/dL (6.4-8.2); Sodium Level 133 mmol/L (136-145)
== END 2021-11-05 23:59 | disposition home or self-care (01) ==
LOC: MTLAB 12:15
PROVIDERS: PCP Family Medicine; Referring Provider Family Medicine; Visit Provider Family Medicine
DX: R53.83 Other fatigue (principal); B34.9 Viral infection, unspecified; R05.9 Cough, unspecified
CPT/HCPCS: 36415; 71046; 80053; 84443; 85025; 87635; U0003; U0005

== ENCOUNTER 2021-11-07 17:55 | Outpatient (CLI) | payer MEDICARE, OTHER, SELFPAY | END 2021-11-07 23:59 | disposition home or self-care (01) | PROVIDERS: PCP Family Medicine; Visit Provider Family Medicine | DX: R09.89 Other specified symptoms and signs involving the circulatory and respiratory systems (principal) | CPT/HCPCS: 87633 ==

== ENCOUNTER 2021-11-14 14:14 | Outpatient (CLI) | payer MEDICARE, OTHER, SELFPAY ==
[2021-11-14 17:48] LABS: Absolute Lymphocyte Count 1.22 X10^3/uL (0.83-4.51); Absolute Neutrophil Count 7.7 X10^3/uL (2.0-7.7); Basophil# 0.08 X10^3/uL; Basophil% 0.7 % (0-1); Eosinophil# 0.44 X10^3/uL; Eosinophils% 4.1 % (0-5); Hematocrit 34.3 % (37-47); Hemoglobin 11.2 g/dL (12.0-15.0); Internal QC Validated? YES +Cl - CLEAR BKGD; Lymphocyte # 1.22 X10^3/ul (0.83-4.51); Lymphocyte % 11.4 % (19-41); Mean Corp Hgb Conc 32.7 g/dL (32-36); Mean Corpuscular Hgb 29.8 pg (27.0-32.0); Mean Corpuscular Volume 91.2 fL (81-99); Monocyte# 1.02 X10^3/uL; Monocyte% 9.6 % (0-10); Monotest Negative (Negative); NRBC Flagged by Analyzer 0 % (0-5); Neutrophil # 7.73 X10^3/uL (2.7-7.7); Neutrophil % 72.5 % (47-70); Platelet Count 450 K/mm3 (150-450); RBC Distribution Width CV 13.3 % (11.6-14.6); RBC Distribution Width SD 45.1 fl (35.1-43.9); Red Blood Count 3.76 M/mm3 (4.2-5.4); White Blood Count 10.7 K/mm3 (4.4-11.0)
[2021-11-14 18:29] LABS: ALB/GLOB Ratio 0.7 RATIO (0.9-2.4); AST(SGOT) 24 U/L (15-37); Alanine Aminotransfer ALT/SGPT 32 U/L (13-56); Albumin, Serum 2.8 g/dL (3.2-5.0); Alkaline Phosphatase 78 U/L (45-117); Anion Gap 8 (5-15); BUN 14 mg/dL (7-18); BUN/Creat Ratio 17.3 RATIO (10-20); Calcium,Total 8.6 mg/dL (8.5-10.1); Chloride 103 mmol/L (98-107); Creatinine, Serum 0.81 mg/dL (0.55-1.02); EST Glomerular Filtration Rate 71 mL/min (>60); Est Glom Filt Rate - Afr Amer 86 mL/min (>60); Globulin 4.1 g/dL (2.2-4.2); Glucose 88 mg/dL (74-106); Potassium 3.9 mmol/L (3.5-5.1); Protein, Total 6.9 g/dL (6.4-8.2); Sodium Level 135 mmol/L (136-145)
[2021-11-15 08:13] LABS: PTHIN 38.2 pg/mL (18.4-80.1)
== END 2021-11-14 23:59 | disposition home or self-care (01) ==
LOC: MFPLAB 14:26
PROVIDERS: PCP Family Medicine; Referring Provider Family Medicine; Visit Provider Family Medicine
DX: R53.83 Other fatigue (principal); R50.9 Fever, unspecified
CPT/HCPCS: 36415; 80053; 83970; 85025; 86308

== ENCOUNTER 2021-11-16 12:11 | Outpatient (CLI) | payer MEDICARE, OTHER, SELFPAY | END 2021-11-16 23:59 | disposition home or self-care (01) | LOC: LABSPEC 12:13 | PROVIDERS: PCP Family Medicine; Visit Provider Family Medicine | DX: R30.0 Dysuria (principal) | CPT/HCPCS: 87077; 87086; 87088 ==

== ENCOUNTER 2021-11-22 11:51 | Outpatient (CLI) | payer MEDICARE, OTHER, SELFPAY ==
--- NOTE | 2021-11-22 11:57 | RAD_ITS ---
INDICATION: FEVER AND CHILLS EXAMINATION/TECHNIQUE: X-RAY - XR Chest 2 Views COMPARISON: 11/05/2021 FINDINGS: Support devices: None. No focal consolidations, effusions, or sizable pneumothorax. Heart size is stable. Bones and soft tissues are unchanged. RAD/Chest PA and Lateral IMPRESSION: No acute findings. Stable exam since 11/05/2021. Electronically Signed: Johan Martin, at 12:56 EDT ,
[2021-11-22 15:15] LABS: Absolute Lymphocyte Count 1.72 X10^3/uL (0.83-4.51); Absolute Neutrophil Count 5.9 X10^3/uL (2.0-7.7); Basophil# 0.09 X10^3/uL; Basophil% 0.9 % (0-1); Eosinophil# 0.65 X10^3/uL; Eosinophils% 6.8 % (0-5); Hematocrit 35.2 % (37-47); Hemoglobin 11.2 g/dL (12.0-15.0); Lymphocyte # 1.72 X10^3/ul (0.83-4.51); Lymphocyte % 18.1 % (19-41); Mean Corp Hgb Conc 31.8 g/dL (32-36); Mean Corpuscular Hgb 28.6 pg (27.0-32.0); Mean Platelet Vol. 10.2 fl (6.2-12.0); Monocyte% 10.5 % (0-10); NRBC Flagged by Analyzer 0 % (0-5); Neutrophil # 5.88 X10^3/uL (2.7-7.7); Neutrophil % 61.9 % (47-70); Platelet Count 477 K/mm3 (150-450); RBC Distribution Width CV 13.5 % (11.6-14.6); RBC Distribution Width SD 44.6 fl (35.1-43.9); Red Blood Count 3.91 M/mm3 (4.2-5.4); White Blood Count 9.5 K/mm3 (4.4-11.0)
[2021-11-22 15:45] LABS: Color, Urine Dk Yello (Yellow); Glucose, Dipstick Normal (Normal); Ketone-Dipstick 5 mg/dl (Negative); Leukocyte Esterase-Dipstick 25 /ul (Negative); Nitrite-Dipstick Negative (Negative); Occult Blood-Urine 10 /ul (Negative); Protein-Dipstick 30 mg/dl (Negative); Specific Gravity, Urine 1.025 (1.002-1.030); Urine Bilirubin Dipstick 1 mg/dL (Negative); Urine Clarity Clear (Clear); Urine Urobilinogen 1 mg/dl (Normal)
[2021-11-22 15:47] LABS: BNP,B-Type NATRIURETIC PEPTIDE 54.9 pg/mL (0-100)
[2021-11-22 15:52] LABS: ALB/GLOB Ratio 0.7 RATIO (0.9-2.4); AST(SGOT) 27 U/L (15-37); Alanine Aminotransfer ALT/SGPT 37 U/L (13-56); Alkaline Phosphatase 70 U/L (45-117); Anion Gap 6 (5-15); BUN 17 mg/dL (7-18); BUN/Creat Ratio 18.7 RATIO (10-20); Calcium,Total 8.9 mg/dL (8.5-10.1); Chloride 106 mmol/L (98-107); Creatinine, Serum 0.91 mg/dL (0.55-1.02); EST Glomerular Filtration Rate 62 mL/min (>60); Est Glom Filt Rate - Afr Amer 75 mL/min (>60); Globulin 4.3 g/dL (2.2-4.2); Glucose 98 mg/dL (74-106); Potassium 4.2 mmol/L (3.5-5.1); Protein, Total 7.3 g/dL (6.4-8.2); Sodium Level 137 mmol/L (136-145); Thyroid Stim Hormone (TSH) 2.52 uIU/mL (0.358-3.74)
== END 2021-11-22 23:59 | disposition home or self-care (01) ==
LOC: MTLAB 11:54
PROVIDERS: PCP Family Medicine; Referring Provider Family Medicine; Visit Provider Family Medicine
DX: R06.02 Shortness of breath (principal); R50.9 Fever, unspecified
CPT/HCPCS: 36415; 71046; 80053; 81002; 83880; 84443; 85025; 87086; 87088

== ENCOUNTER → 2022-03-20 | Outpatient (CLI) | payer MEDICARE, OTHER, SELFPAY ==
[2022-03-20 13:14] LABS: Absolute Lymphocyte Count 2.22 X10^3/uL (0.83-4.51); Absolute Neutrophil Count 2.8 X10^3/uL (2.0-7.7); Basophil# 0.06 X10^3/uL; Eosinophil# 0.39 X10^3/uL; Eosinophils% 6.2 % (0-5); Hematocrit 37.7 % (37-47); Hemoglobin 12.3 g/dL (12.0-15.0); Lymphocyte # 2.22 X10^3/ul (0.83-4.51); Lymphocyte % 35.2 % (19-41); Mean Corp Hgb Conc 32.6 g/dL (32-36); Mean Corpuscular Hgb 29.3 pg (27.0-32.0); Mean Corpuscular Volume 89.8 fL (81-99); Mean Platelet Vol. 10.4 fl (6.2-12.0); Monocyte# 0.79 X10^3/uL; Monocyte% 12.5 % (0-10); NRBC Flagged by Analyzer 0 % (0-5); Neutrophil # 2.81 X10^3/uL (2.7-7.7); Neutrophil % 44.6 % (47-70); Platelet Count 225 K/mm3 (150-450); RBC Distribution Width CV 14.8 % (11.6-14.6); RBC Distribution Width SD 48.1 fl (35.1-43.9); White Blood Count 6.3 K/mm3 (4.4-11.0)
== END | disposition home or self-care (01) ==
LOC: LAB 12:27
PROVIDERS: PCP Family Medicine; Referring Provider Internal Medicine Pulmonary Disease; Visit Provider Internal Medicine Pulmonary Disease
DX: R09.02 Hypoxemia (principal)
CPT/HCPCS: 36415; 85025

== ENCOUNTER → 2022-05-29 | Outpatient (CLI) | payer MEDICARE, OTHER, SELFPAY ==
--- NOTE | 2022-05-29 13:49 | ECHOD_ITS ---
Version 2 Reason For Study: Dyspnea/SOB Procedure This was a 2D Doppler, Color Flow transthoracic echocardiogram. The study was technically difficult. Exam performed in department. Left Ventricle Normal LV size. Left ventricular systolic function is normal. The estimated ejection fraction is 60 %. Stage 1 diastolic dysfunction. No regional wall motion abnormalities noted. Right Ventricle Normal RV size. Normal systolic function. Atria Normal left atrium. Mitral Valve Normal mitral valve. Tricuspid Valve Normal tricuspid valve. Mild (1+) tricuspid valve insufficiency. Pulmonary artery systolic pressure is 27 mmHg. Aortic Valve Normal aortic valve. Trisinus/trileaflet aortic valve. Pulmonic Valve Normal pulmonic valve. Great Vessels Normal aortic root. The pulmonary artery is normal size. Normal inferior vena cava. Pericardium/Pleural No pericardial effusion. MMode/2D Measurements & Calculations LVIDd: 3.8 cm IVSd: 0.88 cm Ao root diam: 3.4 cm LVIDs: 2.5 cm LVPWd: 0.90 cm LA dimension: 4.0 cm RVDd: 3.2 cm FS: 36.0 % LAV(MOD-bp): 56.4 ml LA A4 area: 15.9 cm2 RA A4 area: 14.8 cm2 LAV(MOD-bp) Indexed: 33.0 ml/m2 LAV(MOD-sp2): 52.6 ml LAV(MOD-sp4): 42.2 ml Time Measurements MV dec time: 0.25 sec Doppler Measurements & Calculations MV E max bryan: 48.2 cm/sec Lat Peak E' Bryan: 5.0 cm/sec Med Peak E' Bryan: 4.5 cm/sec MV A max bryan: 90.2 cm/sec E/E' lat: 9.6 E/E' med: 10.7 MV E/A: 0.53 MV V2 max: 114.0 cm/sec MV P1/2t max bryan: 74.2 cm/sec Ao V2 max: 107.1 cm/sec MV max P.2 mmHg MV P1/2t: 109.8 msec Ao max P.6 mmHg MV V2 mean: 52.9 cm/sec MV dec slope: 198.0 cm/sec2 MV mean P.4 mmHg MVA(P1/2t): 2.0 cm2 MV V2 VTI: 28.7 cm LV V1 max: 95.6 cm/sec PA V2 max: 93.3 cm/sec TR max bryan: 244.7 cm/sec LV V1 max P.7 mmHg PA V2 mean: 59.7 cm/sec TR max P.9 mmHg ECHO/Echo Complete Interpretation Summary Normal LV size. Left ventricular systolic function is normal. The estimated ejection fraction is 60 %. Pulmonary artery systolic pressure is 27 mmHg. Stage 1 diastolic dysfunction. Structurally normal valves. Ordering Physician: Carson Guzmán V Referring Physician: Abdiel Salazar Performed By: Silas Olivera RCS
== END | disposition home or self-care (01) ==
PROVIDERS: PCP Family Medicine; Referring Provider Internal Medicine Pulmonary Disease; Visit Provider Internal Medicine Pulmonary Disease
DX: R06.00 Dyspnea, unspecified (principal)
CPT/HCPCS: 93306

== ENCOUNTER → 2022-12-26 | Outpatient (CLI) | payer MEDICARE, OTHER, SELFPAY ==
--- NOTE | 2022-12-26 12:47 | BI_ITS ---
MAMMOGRAPHY - BILATERAL SCREENING REASON FOR EXAM: Female, 87 years old. Routine annual screening examination. PERTINENT HISTORY: Non-contributory. History of prior bilateral breast implants and removal. TECHNIQUE: Digital bilateral breast josie (3D mammographic acquisition) in the CC and MLO projections. 2-D mediolateral oblique (MLO) and craniocaudad (CC) views of both breasts were obtained. CAD: Full Field Digital Mammography with Computer Added Detection was performed. COMPARISON: Comparison is made with prior outside examination dated July 26, 2019. FINDINGS: Breast Composition: There are scattered areas of fibroglandular density. There are no dominant masses or suspicious calcifications. No other significant abnormalities are identified. There has been no significant change since the prior study. BI/SCRN MAMM (CAD)W/JOSIE BILAT IMPRESSION: Stable bilateral screening mammogram. Yearly follow-up mammogram recommended. (A) ASSESSMENT CATEGORY: BIRADS Category 1: Negative. A letter regarding these results will be sent to the patient by the facility within 30 days. Approximately 10% of breast cancers are not detected by mammography. A normal mammogram should not delay biopsy of a clinically suspicious abnormality. [id number] Electronically Signed: José Levin MD at 9:02 EDT ,
== END | disposition home or self-care (01) ==
LOC: OPBI 12:44
PROVIDERS: PCP Family Medicine; Referring Provider Family Medicine; Visit Provider Family Medicine
DX: Z12.31 Encounter for screening mammogram for malignant neoplasm of breast (principal)
CPT/HCPCS: 77063; 77067

== ENCOUNTER → 2023-01-13 | Outpatient (CLI) | payer MEDICARE, OTHER, SELFPAY ==
[2023-01-13 19:03] LABS: ALB/GLOB Ratio 1.3 RATIO (0.9-2.4); AST(SGOT) 34 U/L (15-37); Alanine Aminotransfer ALT/SGPT 26 U/L (13-56); Albumin, Serum 3.9 g/dL (3.2-5.0); Alkaline Phosphatase 70 U/L (45-117); Anion Gap 10 (5-15); BUN 31 mg/dL (7-18); BUN/Creat Ratio 34.8 RATIO (10-20); Calcium,Total 8.7 mg/dL (8.5-10.1); Chloride 110 mmol/L (98-107); Creatinine, Serum 0.89 mg/dL (0.55-1.02); EST Glomerular Filtration Rate 64 mL/min (>60); Est Glom Filt Rate - Afr Amer 77 mL/min (>60); Glucose 88 mg/dL (74-106); Potassium 5.1 mmol/L (3.5-5.1); Protein, Total 6.9 g/dL (6.4-8.2); Sodium Level 138 mmol/L (136-145); Thyroid Stim Hormone (TSH) 1.76 uIU/mL (0.358-3.74)
== END | disposition home or self-care (01) ==
LOC: MFPLAB 15:11
PROVIDERS: PCP Family Medicine; Visit Provider Nurse Practitioner Family
DX: I10 Essential (primary) hypertension (principal)
CPT/HCPCS: 36415; 80053; 84443

== ENCOUNTER → 2023-03-18 | Outpatient (CLI) | payer MEDICARE, OTHER, SELFPAY ==
--- NOTE | 2023-03-18 19:18 | CT_ITS ---
ACR Level 3 findings have been noted. An addendum which confirms receipt of the report will follow. STUDY: CT CHEST, ABDOMEN T PELVIS WITH CONTRAST REASON FOR EXAM: Female, 87 years old. right upper and lower quadrant pain when bending, concern for her RADIATION DOSAGE (If Supplied By Facility): CTDIvol = ( 17.88 ) mGy, DLP = ( 1637.97 ) mGycm TECHNIQUE: Transaxial imaging was performed following intravenous administration of Oral and amp; IV Gastrografin and amp; 150 total Isovue-300. 75 ml infiltration of Isovue-300 at the right AC was reported by diamond powder technician Individualized dose optimization techniques were used for this CT. COMPARISON: CT chest August 27, 2018. Chest radiograph November 22, 2021. FINDINGS: CHEST Diminutive thyroid with 2 mm posterior left thyroid nodule that is likely benign given small size relative to age, no imaging follow-up required. No cardiomegaly or pericardial effusion. Mild calcific coronary atherosclerosis. No aortic dissection or ectasia. Mild scattered atherosclerosis. Unremarkable pulmonary outflow tract nonangiogram exam. Scattered mediastinal lymph nodes 1.1 cm in short axis pretracheal with smaller aorticopulmonary window lymph nodes. Right hilar adenopathy up to 1.2 cm short axis at the inferior hilum. Subcentimeter left hilar lymph nodes are also present. Mild bilateral scarring. Mild diffuse smooth septal thickening. Mild dependent atelectasis within the lung bases. No consolidation, effusion, or pneumothorax. No endobronchial lesion. ABDOMEN PELVIS Normal liver with minimal postsurgical intrabiliary dilatation. Postcholecystectomy. Common bile duct is within normal limits. Normal spleen. Normal pancreas. Normal bilateral adrenal glands. Right renal 7 mm cyst, no imaging follow-up required. Normal left renal cortical enhancement. No hydronephrosis or perinephric inflammation. Partial duplication of the right renal collecting system, joint in the region of the pelvic brim. Unremarkable left ureter. Unremarkable bladder.. Contrast-filled stomach surrounding ingested material without lidia distention or wall thickening. No small bowel distention or focal wall thickening. Unremarkable terminal ileum. Normal appendix. Large colonic stool burden cecum to rectum. Descending colonic and sigmoid colonic diverticulosis with mild diverticular inflammation at the mid sigmoid colon with trace adjacent inflammatory stranding, axial image 82 and 83. Mild mid sigmoid bowel wall thickening. No free air or free fluid. No abscess. No intra-abdominal or pelvic adenopathy. Absent uterus. Grossly symmetric adnexa with right ovarian 1.8 cm cyst or cystic mass and left ovarian 0.8 cm cyst or cystic mass. Aortic atherosclerosis with minimal infrarenal ectasia to 2.3 cm. No dissection. MUSCULOSKELETAL. New enlargement of left level 2 axillary lymph nodes posterior to pectoralis minor measuring up to 1.9 x 0.9 cm with additional adjacent smaller enlarged nodes. No CT apparent breast mass appreciated.. Contrast noted along the right antecubital fossa compatible with previous reported infiltration. No acute osseous finding.. CT/CT Chest, Abd, Pel w/Contrast IMPRESSION: Distal colonic diverticulosis with trace inflammation concerning for mild uncomplicated diverticulitis at the mid sigmoid colon. Consider CT or colonoscopy follow-up in 6 weeks after treatment to ensure resolution wall thickening. Large colonic stool burden proximal to the sigmoid colon compatible with secondary dysmotility. New scattered mild adenopathy involving left level 2 axillary region, mediastinum, and right greater than left hilum. Correlate for history of lymphoproliferative disorder. No acute pulmonary infection or suspicious mass is seen. Would consider follow-up diagnostic mammogram in the setting of left level 2 axillary nodes. 3 month follow-up CT is recommended 75 ml infiltration of Isovue-300 IV contrast at the right antecubital arm is reported by diamond powder technician. Clinical follow-up is recommended. Electronically Signed: Antonio Wong MD at 9:47 EDT ,
== END | disposition home or self-care (01) ==
LOC: CT 18:48
PROVIDERS: PCP Family Medicine; Referring Provider Family Medicine; Visit Provider Family Medicine
DX: R10.31 Right lower quadrant pain (principal)
CPT/HCPCS: 71260; 74177; Q9967; A4216

== ENCOUNTER → 2023-04-04 | Outpatient (CLI) | payer MEDICARE, OTHER, SELFPAY ==
[2023-04-04 15:56] LABS: Erythrocyte Sedimentation Rate 6 mm/hr (0-30)
[2023-04-04 15:59] LABS: Absolute Lymphocyte Count 1.35 X10^3/uL (0.83-4.51); Absolute Neutrophil Count 2.9 X10^3/uL (2.0-7.7); Basophil# 0.06 X10^3/uL; Basophil% 1.1 % (0-1); Eosinophil# 0.22 X10^3/uL; Eosinophils% 4.2 % (0-5); Hematocrit 43.1 % (37-47); Lymphocyte # 1.35 X10^3/ul (0.83-4.51); Lymphocyte % 25.7 % (19-41); Mean Corp Hgb Conc 32.5 g/dL (32-36); Mean Corpuscular Hgb 30.4 pg (27.0-32.0); Mean Corpuscular Volume 93.5 fL (81-99); Mean Platelet Vol. 11.1 fl (6.2-12.0); Monocyte% 13.3 % (0-10); NRBC Flagged by Analyzer 0 % (0-5); Neutrophil % 55.3 % (47-70); Platelet Count 243 K/mm3 (150-450); RBC Distribution Width CV 13.9 % (11.6-14.6); RET-HE 33.5 pg (30-35); Red Blood Count 4.61 M/mm3 (4.2-5.4); Reticulocyte Count 1.23 % (0.5-1.5); White Blood Count 5.3 K/mm3 (4.4-11.0)
[2023-04-04 16:10] LABS: AST(SGOT) 38 U/L (15-37); Alanine Aminotransfer ALT/SGPT 46 U/L (13-56); Albumin, Serum 3.8 g/dL (3.2-5.0); Alkaline Phosphatase 65 U/L (45-117); Anion Gap 7 (5-15); BUN 25 mg/dL (7-18); BUN/Creat Ratio 24.5 RATIO (10-20); CRP < 2.90 mg/L (0.0-3.0); Calcium,Total 9.1 mg/dL (8.5-10.1); Chloride 109 mmol/L (98-107); Creatinine, Serum 1.02 mg/dL (0.55-1.02); EST Glomerular Filtration Rate 54 mL/min (>60); Est Glom Filt Rate - Afr Amer 66 mL/min (>60); Ferritin 363 ng/mL (8-252); Globulin 3.7 g/dL (2.2-4.2); Glucose 84 mg/dL (74-106); Hepatitis C Antibody Non-Reactive (Nonreactive); Potassium 4.6 mmol/L (3.5-5.1); Protein, Total 7.5 g/dL (6.4-8.2); Sodium Level 140 mmol/L (136-145); Thyroid Stim Hormone (TSH) 2.11 uIU/mL (0.358-3.74); Vitamin B12 548 pg/mL (211-911); Vitamin D,25 Hydroxy 28.1 ng/mL
[2023-04-07 13:07] LABS: ANTINUCLEAR ANTIBODIES DIRECT Negative (Negative)
[2023-04-08 15:08] LABS: Lyme Scn Total Ab w/Rflx Negative (Negative); PROEL- A/G Ratio 1.3 (0.7-1.7); PROEL- Albumin 3.9 g/dL (2.9-4.4); PROEL- Alpha-1 Globulin 0.2 g/dL (0.0-0.4); PROEL- Alpha-2 Globulin 0.7 g/dL (0.4-1.0); PROEL- Beta Globulin 1.1 g/dL (0.7-1.3); PROEL- Gamma Globulin 0.8 g/dL (0.4-1.8); PROEL- Globulin, Total 2.9 g/dL (2.2-3.9); PROEL- TOTAL PROTEIN 6.8 g/dL (6.0-8.5)
== END | disposition home or self-care (01) ==
LOC: MFPLAB 12:26
PROVIDERS: PCP Family Medicine; Visit Provider Family Medicine
DX: R53.83 Other fatigue (principal); K57.92 Diverticulitis of intestine, part unspecified, without perforation or abscess without bleeding
CPT/HCPCS: 36415; 80053; 82306; 82607; 82728; 82746; 84165; 84443; 85025; 85045; 85652; 86038; 86140; 86225; 86235; 86618; 86803

== ENCOUNTER → 2023-04-15 | Outpatient (CLI) | payer MEDICARE, OTHER, SELFPAY ==
--- NOTE | 2023-04-15 13:26 | CT_ITS ---
STUDY: CT CHEST, ABDOMEN T PELVIS WITH CONTRAST REASON FOR EXAM: Female, 87 years old. Diverticulitis suspected and SOB with exertion RADIATION DOSAGE (If Supplied By Facility): CTDIvol = ( 16.19 ) mGy, DLP = ( 1394.65 ) mGycm TECHNIQUE: Transaxial imaging was performed following intravenous administration of Oral and amp; IV Readi-CAT and amp; 100mL Isovue-300. Multiplanar coronal and sagittal images were reformatted. Individualized dose optimization techniques were used for this CT. COMPARISON: Comparison is made with prior study dated March 18, 2023. FINDINGS: CHEST Stable 2 mm hypodense nodule in the posterior aspect of the left lobe of the thyroid. Stable mild linear scarring at the lung bases. Stable scarring in the lung apices. There is no demonstrated pleural abnormality. Normal heart and pericardium. There are multiple small lymph nodes within the mediastinum, which are normal in size and morphology most compatible with reactive lymph hyperplasia. Normal hilar regions. Normal unenhanced pulmonary arteries. There is atherosclerotic calcification of the aortic arch with tortuosity and elongation of the aortic arch and descending thoracic aorta. There are degenerative changes of the thoracic spine. ABDOMEN Normal liver. The gallbladder is contracted. Normal spleen. Normal pancreas. Normal bilateral adrenal glands. Normal right kidney. Normal left kidney. Once again, there is evidence of contrast and residual food in the stomach. Normal small intestine. There are multiple colonic diverticula consistent with diverticulosis. The appendix is visualized and appears normal. There is diffuse atherosclerotic calcification of the abdominal aorta, without a demonstrated aneurysm. Normal inferior vena cava. Normal retroperitoneum. PELVIS Normal urinary bladder. Patient is status post hysterectomy. Normal visualized small intestine. Normal visualized colon. There is no pelvic fluid. There is no pelvic lymphadenopathy or mass lesion. Normal visualized pelvic arteries. Normal abdominal wall. There are mild degenerative changes of the visualized lumbar spine. CT/CT Chest, Abd, Pel w/Contrast IMPRESSION: Stable examination. No acute abnormality is seen. Electronically Signed: José Levin MD at 15:01 EDT ,
== END | disposition home or self-care (01) ==
LOC: CT 13:24
PROVIDERS: PCP Family Medicine; Referring Provider Family Medicine; Visit Provider Family Medicine
DX: K57.92 Diverticulitis of intestine, part unspecified, without perforation or abscess without bleeding (principal)
CPT/HCPCS: 71260; 74177; Q9967

== ENCOUNTER → 2023-05-16 | Outpatient (CLI) | payer MEDICARE, OTHER, SELFPAY | END | disposition home or self-care (01) | PROVIDERS: PCP Family Medicine; Referring Provider Family Medicine; Visit Provider Family Medicine | DX: N39.0 Urinary tract infection, site not specified (principal) | CPT/HCPCS: 87086; 87088 ==

== ENCOUNTER → 2023-05-26 | Outpatient (CLI) | payer MEDICARE, OTHER, SELFPAY | END | disposition home or self-care (01) | LOC: LABSPEC 11:00 | PROVIDERS: PCP Family Medicine; Visit Provider Family Medicine | DX: N39.0 Urinary tract infection, site not specified (principal) | CPT/HCPCS: 87086 ==

== ENCOUNTER → 2023-07-25 | Outpatient (CLI) | payer MEDICARE, OTHER, SELFPAY ==
[2023-07-25 10:47] LABS: Hematocrit 38.3 % (37-47); Hemoglobin 12.5 g/dL (12.0-15.0); Mean Corp Hgb Conc 32.6 g/dL (32-36); Mean Corpuscular Hgb 30.9 pg (27.0-32.0); Mean Corpuscular Volume 94.6 fL (81-99); Mean Platelet Vol. 10.1 fl (6.2-12.0); Platelet Count 190 K/mm3 (150-450); RBC Distribution Width CV 14.3 % (11.6-14.6); RBC Distribution Width SD 50.4 fl (35.1-43.9); Red Blood Count 4.05 M/mm3 (4.2-5.4); White Blood Count 4.4 K/mm3 (4.4-11.0)
[2023-07-25 10:56] LABS: Erythrocyte Sedimentation Rate 7 mm/hr (0-30)
[2023-07-25 11:26] LABS: Anion Gap 3 (5-15); BUN 20 mg/dL (7-18); BUN/Creat Ratio 20.5 RATIO (10-20); CRP < 2.90 mg/L (0.0-3.0); Calcium,Total 8.4 mg/dL (8.5-10.1); Chloride 114 mmol/L (98-107); Creatinine, Serum 0.97 mg/dL (0.55-1.02); EST Glomerular Filtration Rate 57 mL/min (>60); Est Glom Filt Rate - Afr Amer 69 mL/min (>60); Glucose 93 mg/dL (74-106); Potassium 4.3 mmol/L (3.5-5.1); Rheumatoid Factor < 10.0 IU/mL (<15); Sodium Level 143 mmol/L (136-145)
[2023-07-28 08:07] LABS: Angiotensin Convert Enzyme 41 U/L (14-82)
[2023-07-28 13:07] LABS: ANTINUCLEAR ANTIBODIES DIRECT Negative (Negative); Anti-dsDNA Ab <1 IU/mL (0-9)
== END | disposition home or self-care (01) ==
LOC: LAB 10:23
PROVIDERS: PCP Family Medicine; Referring Provider Internal Medicine Pulmonary Disease; Visit Provider Internal Medicine Pulmonary Disease
DX: R06.02 Shortness of breath (principal)
CPT/HCPCS: 36415; 80048; 82164; 85027; 85652; 86038; 86140; 86225; 86431

== ENCOUNTER 2023-10-12 07:54 | Observation (INO) | payer MEDICARE, OTHER, SELFPAY ==
[2023-10-12] VITALS (9 sets, daily range): BP systolic 108–235; BP diastolic 60–94; PULSE 41–65; RESP 12–18; TEMP 36.6–36.8; O2SAT 90–98; BMI 30.5; BMI 29.0
--- NOTE | 2023-10-12 08:08 | EDS_ITS ---
HPI History of Present Illness Chief Complaint: Chest Pain Detail of Chief Complaint: Chest pain Informant: patient Narrative Narrative: Patient presents to the emergency department complaint of chest pain that started about an hour and a half ago. Patient states initially she noticed that around 4 AM had a little bit of discomfort. Over the last hour and a half she has had this tightness and squeezing across her chest that radiates to her upper back and into her jaw. She denies nausea or vomiting. She denies shortness of breath. She has not had discomfort like this before. She denies recent illness. Denies injury to her chest wall. She does have history of GERD. This discomfort is different than her GERD. [facility] Medical History (Updated 10/12/23 @ 10:[address] Andrew Alvarez, ) Atrophic vaginitis Back pain Bronchitis Carpal tunnel syndrome on both sides Chronic cough Colon polyp COPD (chronic obstructive pulmonary disease) Hypercholesteremia Hypothyroid Kidney stone Night sweats Home Medications levothyroxine 50 mcg tablet (Synthroid) 50 mcg PO DAILY 09/23/18 [History Last Taken 07/15/19] multivitamin,zn-briy-tdkazpfj (Complete Multivitamin tablet) 1 tab PO DAILY 09/23/18 [History Last Taken 07/15/19] pyridoxine (vitamin B6) 100 mg tablet 100 mg PO DAILY 09/23/18 [History Last Taken 07/15/19] cyanocobalamin (vitamin B-12) 500 mcg tablet 500 mcg PO DAILY 07/15/19 [History Last Taken 07/15/19] krill aix-un-0-wjx-reb-zmjglrgbarwab 300 mg-90 mg-24 mg-50 mg capsule 1 ea PO DAILY 07/15/19 [History Last Taken 07/15/19] magnesium amino acid chelate 100 mg tablet 100 mg PO DAILY 07/15/19 [History Last Taken 07/15/19] propranolol 10 mg tablet 10 mg PO QHS 10/12/23 [History Last Taken Unknown] Allergy/AdvReac Type Severity Reaction Status Date / Time ciprofloxacin Allergy Severe headaches Verified 07/15/19 13:41 melatonin AdvReac Severe Anaphylaxis Verified 07/15/19 13:41 Ifehirw-MDD-XaG Reductase AdvReac Severe confusion Verified 07/15/19 13:41 Inhibitor [Khflick-Zhc-Ngo Reductase Inhibitor] Family History Mother CAD (coronary artery disease) Father Glaucoma Heart disease Brother Diabetes Cancer larynex CAD (coronary artery disease) Heart disease Surgical History (Updated 07/15/19 @ 14:[address] Gretchen Stapleton MD) cervical stumpectomy H/O breast augmentation H/O ligation of vein H/O vitrectomy H/O: hysterectomy History of cholecystectomy History of removal of breast implant History of tonsillectomy Social History (Updated 02/05/19 @ 11:[address] Nirmal Knox, DO) Smoking Status: Never smoker second hand exposure: No ROS ROS ED Review of Systems ROS Unobtainable: other Constitutional Constitutional ED: Reports lethargy; Denies chills, fever(s), sweats or weight loss Eyes Eyes: Denies blurry vision, change in vision or diplopia ENT ENT ED: Denies rhinorrhea or sore throat Cardiovascular Cardiovascular: Reports chest pain; Denies orthopnea or racing heartbeat Respiratory/Chest Respiratory/Chest: Denies cough, dyspnea, dyspnea on exertion, orthopnea or sputum Gastrointestinal Gastrointestinal: Denies abdominal pain, diarrhea, nausea or vomiting Genitourinary Genitourinary ED: Denies dysuria, hematuria or urinary frequency Musculoskeletal Musculoskeletal: Denies arthralgias, back pain, myalgias or neck pain Integumentary Denies abscess, Abrasions or rash Neurologic Neurologic: Denies headache(s) or weakness Psychiatric Psychiatric: Denies anxiety, depression or suicidal thoughts Endocrine Endocrinology: Denies polydipsia, polyphagia or polyuria Hematologic/Lymphatic Hematologic/Lymphatic: Denies easy bleeding, easy bruising or lymphadenopathy Allergic/Immunologic Allergic/Immunologic ED: Denies mouth swelling, tongue swelling or urticaria EXAM Physical Exam Const Vital Signs: 10/12/23 07:55 10/12/23 08:20 10/12/23 08:22 Temperature 97.8 F Temperature Source Temporal Pulse Rate 65 57 L Respiratory Rate 18 Respiratory Effort Blood Pressure 235/93 H 207/86 H Blood Pressure Mean 140 Pulse Ox 98 Oxygen Delivery Method Room Air Room Air 10/12/23 08:25 10/12/23 08:27 10/12/23 09:29 Temperature Temperature Source Pulse Rate 50 L 51 L Respiratory Rate 15 12 Respiratory Effort Normal Non-Labored Blood Pressure 207/86 H 164/72 H Blood Pressure Mean 126 102 Pulse Ox 93 90 Oxygen Delivery Method Room Air Room Air Positive well nourished and well developed General Appearance ED: well developed and NAD HEENT Reports TM's clear and moist mucous membranes normocephalic and atraumatic; Negative for trauma or tenderness Tympanic Membrane ED: Yes TM's clear Eyes PERRL and EOMs intact bilaterally General Eye ED: Negative for pale conjunctiva or scleral icterus Neck no lymphadenopathy, supple and no JVD General: Negative for tenderness Chest Wall inspection of chest normal and palpation of chest normal Chest: Negative for tenderness Resp normal respiratory effort and clear to auscultation bilaterally Effort and Inspection: Negative for respiratory distress or pain with movement Auscultation: Negative for rhonchi, wheezes or diminished lung sounds Cardio regular rate, regular rhythm, S1 normal heart sound, S2 normal heart sound and no murmurs Peripheral Pulses: pulses 2+ throughout GI normal to inspection, nondistended, normoactive bowel sounds, soft to palpation, non-tender, non-distended and no masses Back/Spine no CVA tenderness and no thoracic nor lumbar tenderness Extremity normal to inspection General Extremety ED: Negative for edema General Extremity: Negative for edema Neuro oriented x3, CN's II-XII intact bilaterally, no sensory deficits noted and gait normal Sensorium / Orientation: awake, alert, oriented to person, oriented to place and oriented to time Motor Exam: strength 5/5 throughout and strength abnormal Psych mental status grossly normal Skin no rashes or lesions noted and no wounds Heart Score History: Highly Suspicious ECG: Nonspecific Repolarization Age: >/= 65 years Risk Factors: 1 or 2 Risk Factors Troponin: </= Normal Limit Score: 6 MDM MDM MDM Narrative Medical decision making narrative: Patient presented with chest pain radiating into her back and jaw. Concern for acute coronary syndrome. IV line established. Patient placed on falsework builder. She was given aspirin. EKG obtained showed sinus bradycardia with rate of 56 bpm with old septal infarct. CBC with differential count of 4.9 with hemoglobin 12.4 and platelet count of 182. Chemistries unremarkable. BUN 22 and creatinine 1.04. Troponin was normal at 7. D-dimer elevated 1.85. CTA of the chest obtained showed no evidence of PE or dissection. Lab Data Attestation: I reviewed the patient's lab results. Labs: Laboratory Results - last 24 hr 10/12/23 08:10 WBC 4.9 RBC 4.05 L Hgb 12.4 Hct 37.2 MCV 91.9 MCH 30.6 MCHC 33.3 RDW Std Deviation 46.9 H RDW Coeff of Kimber 13.8 Plt Count 182 MPV 10.6 Immature Gran % (Auto) 0.400 Neut % (Auto) 41.5 L Lymph % (Auto) 38.4 [place] % (Auto) 14.6 H Eos % (Auto) 4.3 Baso % (Auto) 0.8 Absolute Neuts (auto) 2.0 Absolute Lymphs (auto) 1.86 Nucleated RBC % 0 D-Dimer Quant (PE/DVT) 1.85 H* Sodium 143 Potassium 4.4 Chloride 114 H Carbon Dioxide 27.0 Anion Gap 2 L BUN 22 H Creatinine 1.04 H Estim Creat Clear Calc 37.33 Est GFR (MDRD) Af Amer 64 Est GFR (MDRD) Non-Af 53 L BUN/Creatinine Ratio 21.2 H Glucose 113 H Calcium 9.7 Troponin I High Sens 7 Radiography Diagnostic Testing: Clinical Impression(s) from Imaging Studies Chest X-Ray 10/12/23 08:25 IMPRESSION: Degenerative changes, as described above. No demonstrated acute cardiopulmonary process. Electronically Signed: Chicho Jay MD at 8:41 EST , Chest CTA 10/12/23 08:44 IMPRESSION: 1. No demonstrated pulmonary embolism or arterial dissection. 2. A trace right pleural effusion is present. No visualized pneumonic consolidation. Mild interstitial thickening and groundglass edema is present in bilateral lower lobes. No nodules are present. Electronically Signed: Chicho Jay MD at 9:56 EST , 1 view chest x-ray obtained interpreted by myself as no evidence of infiltrate or pneumothorax or acute disease process. EKG Initial EKG: Attestation: I personally reviewed and interpreted this EKG as follows: Comments: Sinus bradycardia with ventricular rate of 56 bpm with old septal infarct Discharge Plan Triage Chief Complaint: Chest Pain ED Provider: Andrew Alvarez Dx/Rx/DC Orders Clinical Impression: Hx of hypercholesterolemia, Chest pain, Hypertension Prescriptions: No Action levothyroxine [Synthroid] 50 mcg tablet 50 mcg PO DAILY pyridoxine (vitamin B6) 100 mg tablet 100 mg PO DAILY Complete Multivitamin tablet 1 tab PO DAILY cyanocobalamin (vitamin B-12) 500 MCG tablet 500 mcg PO DAILY magnesium amino acid chelate 100 MG tablet 100 mg PO DAILY qlwcj-xgknk-3-nfu-pvz-ywxdqh 1 EACH capsule 1 ea PO DAILY propranolol 10 mg tablet 10 mg PO QHS Rx Instructions: take 1/2 to 1 tablet by mouth BEFORE BED if needed TO HELP BP,HR, AND AGGITATION TO LOWER LEVELS Primary Care Provider: Abdiel Salazar Referrals: Abdiel Salazar MD [Primary Care Provider] - Disposition Disposition: Acute Care [facility]
[2023-10-12] MEDS: Aspirin 81 MG TAB.CHEW 324 MG PO (08:19)
[2023-10-12] MEDS: Nitroglycerin SL (ED/IMG/CATH) 0.4 MG TABLET 0.400000000000000022 MG SL (08:20)
[2023-10-12 08:24] LABS: Absolute Lymphocyte Count 1.86 X10^3/uL (0.83-4.51); Basophil# 0.04 X10^3/uL; Basophil% 0.8 % (0-1); Eosinophil# 0.21 X10^3/uL; Eosinophils% 4.3 % (0-5); Hematocrit 37.2 % (37-47); Hemoglobin 12.4 g/dL (12.0-15.0); Lymphocyte # 1.86 X10^3/ul (0.83-4.51); Lymphocyte % 38.4 % (19-41); Mean Corp Hgb Conc 33.3 g/dL (32-36); Mean Corpuscular Hgb 30.6 pg (27.0-32.0); Mean Corpuscular Volume 91.9 fL (81-99); Mean Platelet Vol. 10.6 fl (6.2-12.0); Monocyte# 0.71 X10^3/uL; Monocyte% 14.6 % (0-10); NRBC Flagged by Analyzer 0 % (0-5); Neutrophil # 2.01 X10^3/uL (2.7-7.7); Neutrophil % 41.5 % (47-70); Platelet Count 182 K/mm3 (150-450); RBC Distribution Width CV 13.8 % (11.6-14.6); RBC Distribution Width SD 46.9 fl (35.1-43.9); Red Blood Count 4.05 M/mm3 (4.2-5.4); White Blood Count 4.9 K/mm3 (4.4-11.0)
--- NOTE | 2023-10-12 08:25 | RAD_ITS ---
STUDY: X-RAY CHEST REASON FOR EXAM: Female, 88 years old. chest pain TECHNIQUE: Single AP portable view of the chest. COMPARISON: November 22, 2021 FINDINGS: No visualized consolidation or new infiltrates. There are interstitial fibrotic changes of the lungs. There is no demonstrated pleural abnormality. Normal size heart. Normal mediastinum and virginie. Normal visualized pulmonary arteries. There is atherosclerotic calcification of the aortic arch with tortuosity. There are diffuse degenerative changes of the visualized thoracic spine. Normal visualized ribs, clavicles, and shoulders. There is no demonstrated abnormality of the visualized soft tissue structures of the upper abdomen. RAD/Chest 1 View (Portable) IMPRESSION: Degenerative changes, as described above. No demonstrated acute cardiopulmonary process. Electronically Signed: Chicho Jay MD at 8:41 EST ,
[2023-10-12 08:38] LABS: D-Dimer Quantitative (DVT/PE) 1.85 FEU/ug/m (0.27-0.49)
[2023-10-12] MEDS: 0.9% Normal Saline (1000mL) 1,000 ML 150 ML IV (08:38)
[2023-10-12 08:42] LABS: Anion Gap 2 (5-15); BUN 22 mg/dL (7-18); BUN/Creat Ratio 21.2 RATIO (10-20); Calcium,Total 9.7 mg/dL (8.5-10.1); Chloride 114 mmol/L (98-107); Creatinine, Serum 1.04 mg/dL (0.55-1.02); EST Glomerular Filtration Rate 53 mL/min (>60); Est Glom Filt Rate - Afr Amer 64 mL/min (>60); Estimated Creatinine Clearance 37.33 ml/min; Glucose 113 mg/dL (74-106); Potassium 4.4 mmol/L (3.5-5.1); Sodium Level 143 mmol/L (136-145); Troponin-I HS (w/2H Reflex) 7 pg/mL (3.0-54.0)
--- NOTE | 2023-10-12 08:44 | CT_ITS ---
STUDY: CTA CHEST REASON FOR EXAM: Female, 88 years old. chest pain, elevated d-dimer RADIATION DOSAGE (If Supplied By Facility): CTDIvol = ( 12.55 ) mGy, DLP = ( 421.32 ) mGycm TECHNIQUE: The examination was performed with the intravenous administration of IV 75mL Isovue-370. Post-processing of the angiographic images was performed, with multiplanar reformation and 3D reconstruction. Individualized dose optimization techniques were used for this CT. COMPARISON: CT of the chest dated April 15, 2023 FINDINGS: A trace right pleural effusion is present. No visualized pneumonic consolidation. Mild interstitial thickening and groundglass edema is present in bilateral lower lobes. No nodules are present. Normal enhancement of the main pulmonary artery and right and left pulmonary arteries. Normal enhancement of the bilateral peripheral pulmonary arteries. There is no demonstrated pulmonary embolism. There is atherosclerotic calcification of the aortic arch with tortuosity. There is no demonstrated aortic dissection. Normal heart and pericardium. There are calcifications of the coronary arteries. Normal mediastinum. Normal hilar regions. Normal visualized trachea and bronchi. The lungs are well expanded. Normal chest wall structures. There are degenerative changes of thoracic spine. Chronic compression deformities noted in the mid thoracic spine. Included upper abdomen: Small hiatal hernia. The remaining structures are grossly unremarkable. CT/CTA Chest W/WO Contrast IMPRESSION: 1. No demonstrated pulmonary embolism or arterial dissection. 2. A trace right pleural effusion is present. No visualized pneumonic consolidation. Mild interstitial thickening and groundglass edema is present in bilateral lower lobes. No nodules are present. Electronically Signed: Chicho Jay MD at 9:56 EST Reading Location ID and State: [facility] / [place] , Service support ,
--- OUTSIDE RECORDS SUMMARY | 2023-10-12 08:55 | XMS RPT_ITS | CCD ---
Author Name Unknown Address [address] [place] [address] Organization [facility] Care Team Providers Care Medical Lab Technician Name Role Phone Martin MAYORGA, Abdiel Kearney Primary Care Provider [phone] Allergies Allergy Classification Reported Allergen(s) Allergy Type Date of Onset Reaction(s) Facility (1 source) celecoxib Drug Allergy 1 Rash [facility] (1 source) Ciprofloxacin Drug Allergy 7 Mental Status Change [facility] (1 source) Melatonin Drug Allergy 7 Swelling [facility] (1 source) Pravastatin Drug Allergy 9 Mental Status Change [facility] Work Phone: Medications Completed/Discontinued Medications Medication Drug Class(es) Dates Sig (Normalized) Sig (Original) hydrocortisone 25 mg/ml topical cream (1 source) Corticosteroid Start: 06-13-2017 hydrocortisone 2.5 % cream Apply 1 application to affected area twice daily. Location: apply behind left ear bid for 7 days 30 g 0 06/13/2017 Active Problems Active Problems Problem Classification Problem Date Documented Date Episodic/Chronic Chronic obstructive pulmonary disease and bronchiectasis (1 source) Chronic obstructive lung disease; Translations: [Chronic obstructive pulmonary disease, unspecified] Onset: 08-15-2021 08-15-2021 Chronic Diabetes mellitus without complication (1 source) Prediabetes; Translations: [Prediabetes] 09-30-2016 Episodic Other diseases of veins and lymphatics (1 source) Peripheral venous insufficiency; Translations: [Venous insufficiency (chronic) (peripheral)] Episodic Other nervous system disorders (1 source) Carpal tunnel syndrome; Translations: [Carpal tunnel syndrome, unspecified upper limb] Onset: 08-15-2021 08-15-2021 Chronic Thyroid disorders (1 source) Hypothyroidism; Translations: [Hypothyroidism, unspecified] 09-30-2016 Chronic Past or Other Problems Problem Classification Problem Date Documented Da te Episodic/Chronic Other non-epithelial cancer of skin (2 sources) History of malignant basal cell neoplasm of skin; Translations: [Personal history of other malignant neoplasm of skin] Onset: 01-30-2017 01-30-2017 Episodic Other skin disorders (1 source) Skin lesion; Translations: [Disorder of the skin and subcutaneous tissue, unspecified] Onset: 01-30-2017 01-30-2017 Episodic Results Test Name Value Interpretation Reference Range Facil ity Vital Signs Date Time Vital Sign Value Performing Clinician Faci lity 03-05-2022 09:03-0400 Body weight 69.85 kg Mansi Galarza DO Work Phone: [facility] 03-05-2022 09:03-0400 Diastolic blood pressure 80 mm[Hg] Mansi Galarza DO Work Phone: [facility] 03-05-2022 09:03-0400 Heart rate 64 /min Mansi Galarza DO Work Phone: [facility] 03-05-2022 09:03-0400 SaO2% (BldA) [Mass fraction] 98 % Mansi Galarza DO Work Phone: [facility] 03-05-2022 09:03-0400 Systolic blood pressure 146 mm[Hg] Mansi aGlarza DO Work Phone: [facility] Encounters Encounter Date Encounter Type Care Provider Facility Start: 03-05-2022 End: 03-05-2022 Patient encounter procedure Mansi Galarza DO Work Phone: Vascular Surgery Plan of Treatment Date Care Activity Detail Author Start: 05-09-2022 Influenza vaccination INFLUENZA (#1) [facility] Start: 11-05-2021 COVID-19 VACCINE (4 - Booster for Moderna series) COVID-19 VACCINE (4 - Booster for Moderna series) [facility] Start: 09-08-2021 ADVANCE DIRECTIVE DISCUSSION ADVANCE DIRECTIVE DISCUSSION [facility] Start: 11-28-2020 DIABETES SCREEN DIABETES SCREEN [facility] Start: 2000 BONE DENSITY BONE DENSITY [facility] Start: 1985 SHINGRIX VACCINE (1 of 2) TOMLINSON GRIX VACCINE (1 of 2) [facility] Start: 1954 Urine microalbumin profile DTAP,TDAP ,TD (1 - Tdap) [facility] Start: 1953 SPIROMETRY SPIROMETRY [facility] Start: 1941 PNEUMOCOCCAL: 65+ (1 - PCV) PNEUMOCOCCAL: 65+ (1 - PCV) [facility] Immunizations Immunization Date Immunization Notes Care Provider Jeffry finney 07-23-2016 influenza, seasonal, injectable Mansi Galarza DO Work Phone: [facility] Payers Date Payer Category Payer Unknown [employer] [employer] SUPPLEMENT [id number] 2015-Present [phone] [id number] [employer] [place] [address] Indemnity [id number] 2000 Medicare MEDICARE MEDICAR E A AND B [id number] 2000-Present [phone] [place] [address] Medicare [id number] Social History Date Type Detail Facility Start: 09-08-2016 Tobacco smoking stat us MAIS Never smoked tobacco [facility] Start: 09-08-2016 Tobacco use and exposure Smoke less tobacco non-user [facility] Start: 03-05-2022 Alcohol intake Current drinke r of alcohol (finding) [facility] Start: 11-26-2016 History SDOH Alcohol Comment 1 cocktail daily before dinner [facility] Start: 1935 Sex Assigned At Not on file [facility] Start: 02-23-2022 End: 03-05-2022 Exposure to SARS-CoV-2 (event) Not sure [facility] Progress note 03-05-2022 Note Date & Type Note Facility 03-05-2022 Note HNO ID: [id number] Author: Mansi Galarza DO Service: Vascular Surgery Author Type: Physician Type: Progress Notes Filed: 03/13/2022 10:24 AM Note Text: NAME: ALVINA PEREZ [facility] NO: [id number] DATE OF SERVICE: 03/05/2022 Subjective: Ms. Perez is here to follow up on venous insufficiency. She has a history of significant deep vein reflux on the left with some chronic skin changes. Overall, she has been using her compression stockings and has noticed improvement in her swelling with her stockings. The erythema has improved over time. No ulcerations or tissue loss. She does notice some lumpiness and some fibrotic changes noted. Objective: Her vital signs are stable. She is in no distress. She has bilateral lower extremity edema. She has varicose veins. No ulcerations or tissue loss. Some hyperpigmentation on the distal calf and ankle. Assessment/Plan: 1. Venous insufficiency. 2. Deep vein reflux. Recommend that Ms. Perez continue using her compression stockings. Continue elevating and exercising, being active. She will follow up with us as needed. We discussed if her edema persists or worsens despite the use of compression, she may benefit from the addition of compression pumps for some secondary lymphedema due to her venous insufficiency. She is agreeable to this plan. She will call our office and follow up as needed. Mansi Galarza D.O. KB/089 Audio #: [id number] Date Dictated: 03/05/2022 07:45:29 Date Typed: 03/12/2022 05:37:43 Date Revised: [facility] Progress note 03-05-2022 Note Date & Type Note Facility 03-05-2022 Note HNO ID: [id number] Author: Mansi Galarza DO Service: ? Author Type: Physician Type: Progress Notes Filed: 03/13/2022 12:24 PM Note Text: This office note has been dictated. Mansi Galarza DO [facility] Progress note 03-05-2022 Note Date & Type Note Facility 03-05-2022 Note HNO ID: [id number] Author: Tamiko Short RN Service: ? Author Type: Registered Nurse Type: Progress Notes Filed: 03/13/2022 12:24 PM Note Text: Patient presents with: Established Patient Follow Up AMB ROOMING INTAKE FLOWSHEET DATA Risk Screening Do you have concerns about personal safety or safety in the home?: No [facility] History of Present illness Narrative 03-05-2022 Mansi Galarza, - 03/05/2022 9:40 AM Sayda Short RN - 03/05/2022 9:03 AM EDTMansi Galarza DO - 03/05/2022 12:00 AM EDT Note Date & Type Note Facility 03-05-2022 History of Presen t illness Narrative This office note has been dictated. Mansi Galarza DO Patient presents with: Established Patient Follow Up AMB ROOMING INTAKE FLOWSHEET DATA Risk Screening Do you have concerns about personal safety or safety in the home?: No NAME: ALVINA PEREZ [facility] NO: [id number] DATE OF SERVICE: 03/05/2022 Subjective: Ms. Perez is here to follow up on venous insufficiency. She has a history of significant deep vein reflux on the left with some chronic skin changes. Overall, she has been using her compression stockings and has noticed improvement in her swelling with her stockings. The erythema has improved over time. No ulcerations or tissue loss. She does notice some lumpiness and some fibrotic changes noted. Objective: Her vital signs are stable. She is in no distress. She has bilateral lower extremity edema. She has varicose veins. No ulcerations or tissue loss. Some hyperpigmentation on the distal calf and ankle. Assessment/Plan: 1. Venous insufficiency. 2. Deep vein reflux. Recommend that Ms. Perez continue using her compression stockings. Continue elevating and exercising, being active. She will follow up with us as needed. We discussed if her edema persists or worsens despite the use of compression, she may benefit from the addition of compression pumps for some secondary lymphedema due to her venous insufficiency. She is agreeable to this plan. She will call our office and follow up as needed. Mansi Galarza D.O. KB/089 Audio #: [id number] Date Dictated: 03/05/2022 07:45:29 Date Typed: 03/12/2022 05:37:43 Date Revised: documented in this encounter [facility] Progress note 09-04-2021 Note Date & Type Note Facility 09-04-2021 Note HNO ID: [id number] Author: Mansi Galarza DO Service: Vascular Surgery Author Type: Physician Type: Progress Notes Filed: 09/12/2021 3:30 PM Note Text: NAME: ALVINA PEREZ [facility] NO: [id number] DATE OF SERVICE: 09/04/2021 Subjective: Ms. Perez is here to follow up on left leg hyperpigmentation and lipodermatosclerosis, and her venous reflux testing. She has been using her compression stockings and has noticed some improvement. She is concerned about potential worsening of her symptoms. Objective: Her vital signs are stable. She is in no distress. She does have some trace left lower extremity edema. She does have a band just proximal to her ankle of some hyperpigmentation with some subcutaneous changes with some hardening and loss of pliability of that tissue distally. There is a band of some hyperpigmentation along her distal pretibial tomlinson. Reviewed her venous reflux testing. She has significant deep vein reflux on the left as well throughout from her distal external throughout her entire leg. She has some varicose veins of unknown origin of the posterior thigh and distal medial thigh as well as some chronic postthrombotic changes and some veins off distally. She does have a small ruiz's cyst as well as a small cyst on her anterior distal calf. Assessment/Plan: 1. Venous insufficiency. 2. Significant deep vein reflux. Recommend that Mrs. Perez continue using compression, elevation and exercising as tolerated. Local wound care with steroid ointment sparingly used with moisturizer. She will follow up with us in six months, or sooner with any concerns. Mansi Galarza D.O. KB/089 Audio #: [id number] Date Dictated: 09/04/2021 08:46:48 Date Typed: 09/12/2021 13:53:35 Date Revised: [facility] Progress note 09-04-2021 Note Date & Type Note Facility 09-04-2021 Note HNO ID: [id number] Author: Mansi Galarza, DO Service: ? Author Type: Physician Type: Progress Notes Filed: 09/04/2021 9:36 AM Note Text: This office note has been dictated. Mansi Galarza DO [facility] Progress note 08-21-2021 Note Date & Type Note Facility 08-21-2021 Note HNO ID: [id number] Author: Mansi Galarza, DO Service: ? Author Type: Physician Type: Progress Notes Filed: 09/04/2021 2:28 PM Note Text: VASCULAR SURGERY INITIAL CONSULT SERVICE DATE: 08/21/2021 SERVICE TIME: 9:00 AM PRIMARY CARE PHYSICIAN: Abdiel Salazar MD REFERRING PROVIDER: Abdiel Salazar MD ([facility]) [address] [place] [id number] Consult requested for an opinion regarding the evaluation and treatment of the above. My final impression and recommendations will be communicated back to the requesting physician by way of the shared medical record or letter via [place] mail. CHIEF COMPLAINT/HISTORY OF PRESENT ILLNESS: Chief Complaint: Patient presents with: New Patient History of Present Illness: Patient is a 86 year old White female presenting for consultation, evaluation and possible treatment of left leg discoloration which has progressed over the past year. States will get shooting pain/needles and discomfort. No relieving factors. Has tried compression stockings. No recent trauma however may have had a bug bite/inflammation. She has history of vein ligation and stripping 50 years ago and sclerotherapy on and off. Patient reports left aching, rash and edema. Predisposing factors include history of varicose vein surgery stripping and sclerotherapy. No specific history of injury or prior problems. Relieving factors include support hose, elevation of legs and reduced activity with mild improvement in symptoms. Patient denies DVT, phlebitis and treatment with blood thinners. Pain Assessment: PAIN EVALUATION No data found in the last 1 encounters. 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 SOCIAL HISTORY Social History Tobacco Use - Smoking status: Never Smoker - Smokeless tobacco: Never Used Substance Use Topics - Alcohol use: Yes Comment: 1 cocktail daily before dinner - Drug use: No MEDICATIONS/ALLERGIES Current Outpatient Medications Medication Sig Dispense Refill - SYNTHROID 50 mcg tablet take 1 tablet by mouth once daily 90 tablet 3 - hydrocortisone 2.5 % cream Apply 1 application to affected area twice daily. Location: apply behind left ear bid for 7 days (Patient not taking: Reported on 07/03/2019 ) 30 g 0 No current facility-administered medications for this visit. ALLERGIES Allergen Reactions - Celebrex [Celecoxib] Rash - Ciprofloxacin Mental Status Change - Melatonin Swelling - Pravastatin Mental Status Change REVIEW OF SYSTEMS Constitutional: No weight loss, malaise or fevers. HEENT: Negative for frequent or significant headaches Respiratory: Negative for cough, wheezing, or shortness of breath Cardiovascular: Negative for chest pain, leg swelling or palpitations Gatrointestinal: Negative for abdominal discomfort, blood in stools or black stools or change in bowel habits Genitourinary: No history of dysuria, frequency, or incontinence Musculoskeletal: Negative for joint pain or swelling, back pain or muscle pain Endocrine: Negative for cold or heat intolerance, polyuria, polydipsia and goiter Hematology/Lymphatic: Negative for prolonged bleeding, bruising easily or swollen nodes Neurologic: No history or headaches, syncope, paralysis, seizures or tremors Integumentary: Negative for lesions, rash, and itching. PHYSICAL EXAM VITALS: BP 180/86 Pulse 70 Ht 5' 4 (1.63m) Wt 165 lb (74.8kg) SpO2 97% BMI 28.31 kg/(m2). General: Alert, oriented, cooperative, healthy appearance Integumentary: Normal color, no rash, no lesions. HEENT: EOM, teeth in good repair. Pupils equal, round and reactive. Cardiovascular: Pulse regular. Lungs: No chest deformities or chest wall tenderness. Abdomen: Not examined Extremities: Varicose veins; hyperpigmentation Neurological: AAOx3. Normal cognition and motor skills. Vascular: Dorsalis Pedal Right: Normal - Left: Normal ASSESSMENT Symptomatic varicose veins Diagnostic tests reviewed for today's visit: Most recent labs Most recent imaging PLAN/RECOMMENDATIONS Discussed venous pathology with patient Recommend trial of compression stockings, elevation and exercise Will get venous reflux testing and follow up to discuss results Prescription provided for compression stockings 20-30 mmHg and instructed on use SIGNATURE: Mansi Galarza DO PATIENT NAME: Alvina GARCIA (more content not included)... [facility] Evaluation note Note Date & Type Note Facility documented in this encounter [facility] Summary Purpose Family History No Family History Records Found Advance Directives No Advanced Directives Records Found Additional Source Comments Source Comments (unrecognize d section and content) In the event this informatio n is protected by the Federal Confidentiality of Alcohol and Drug Abuse Patient Records regulations: The Federal rules restrict any use of the information to criminally investigate or prosecute any alcohol or drug abuse patient.[facility] Reason for Visit (unrecogniz ed section and content) Care Teams (unrecognized sec tion and content) INFORMATION SOURCE (unrecogn ized section and content) FOR RECORDS PERTAINING TO PATIENTS WHO ARE OR HAVE BEEN ENROLLED IN A CHEMICAL DEPENDENCY/SUBSTANCEABUSE PROGRAM, SOME INFORMATION MAY BE OMITTED. This clinical summary was aggregated from multiple sources. Caution should be exercised in using it in the provision of clinical care. This summary normalizes information from multiple sources, and as a consequence, information in this document may materially change the coding, format and clinical context of patient data. In addition, data may be omitted in some cases. CLINICAL DECISIONS SHOULD BE BASED ON THE PRIMARY CLINICAL RECORDS. [employer] provides no warranty or guarantee of the accuracy or completeness of information in this document.
[2023-10-12 10:22] LABS: Reflex Troponin-HS? (from REC) Y
--- OUTSIDE RECORDS SUMMARY | 2023-10-12 10:27 | XMS RPT_ITS | CCD ---
Author Name Unknown Address [address] [place] [address] Organization [facility] Care Team Providers Care Shoe Patternmaker Name Role Phone Martin MAYORGA, Abdiel Kearney Primary Care Provider Allergies Allergy Classification Reported Allergen(s) Allergy Type Date of Onset Reaction(s) Facility (1 source) celecoxib Drug Allergy 1 Rash [facility] (1 source) Ciprofloxacin Drug Allergy 7 Mental Status Change [facility] (1 source) Melatonin Drug Allergy 7 Swelling [facility] (1 source) Pravastatin Drug Allergy 9 Mental Status Change [facility] Work Phone: Medications Completed/Discontinued Medications Medication [...] 69.85 kg Mansi Galarza DO Work Phone: [facility] 03-05-2022 09:03-0400 Diastolic blood pressure 80 mm[Hg] Mansi Galarza DO Work Phone: [facility] 03-05-2022 09:03-0400 Heart rate 64 /min Mansi Galarza DO Work Phone: [facility] 03-05-2022 09:03-0400 SaO2% (BldA) [Mass fraction] 98 % Mansi Galarza DO Work Phone: [facility] 03-05-2022 09:03-0400 Systolic blood pressure 146 mm[Hg] Mansi Galarza DO Work Phone: [facility] Encounters Encounter Date Encounter Type Care Provider Facility Start: 03-05-2022 End: 03-05-2022 Patient encounter procedure Mansi Galarza DO Work Phone: Vascular Surgery Plan of Treatment Date Care Activity Detail Author Start: 05-09-2022 Influenza vaccination INFLUENZA (#1) [facility] Start: 11-05-2021 COVID-19 VACCINE (4 - Booster for Moderna series) COVID-19 VACCINE (4 - Booster for Moderna series) [facility] Start: 09-08-2021 ADVANCE DIRECTIVE DISCUSSION ADVANCE DIRECTIVE DISCUSSION [facility] Start: 11-28-2020 DIABETES SCREEN DIABETES SCREEN [facility] Start: 2000 BONE DENSITY BONE DENSITY [facility] Start: 1985 SHINGRIX VACCINE (1 of 2) TOMLINSON GRIX VACCINE (1 of 2) [facility] Start: 1954 Urine microalbumin profile DTAP,TDAP ,TD (1 - Tdap) [facility] Start: 1953 SPIROMETRY SPIROMETRY [facility] Start: 1941 PNEUMOCOCCAL: 65+ (1 - PCV) PNEUMOCOCCAL: 65+ (1 - PCV) [facility] Immunizations Immunization Date Immunization Notes Care Provider Jeffry finney 07-23-2016 influenza, seasonal, injectable Mansi Galarza DO Work Phone: [facility] Payers Date Payer Category Payer Unknown [employer] SUPPLEMENT [id number] 2015-Present [phone] [id number] [place] [address] Indemnity [id number] 2000 Medicare MEDICARE MEDICAR E A AND B [id number] 2000-Present [phone] [place] [address] Medicare [id number] Social History Date Type Detail Facility Start: 09-08-2016 Tobacco smoking stat us MNIS Never smoked tobacco [facility] Start: 09-08-2016 Tobacco use and exposure Smoke less tobacco non-user [facility] Start: 03-05-2022 Alcohol intake Current drinke r of alcohol (finding) [facility] Start: 11-26-2016 History SDOH Alcohol Comment 1 cocktail daily before dinner [facility] Start: 1935 Sex Assigned At Not on file C [facility] Start: 02-23-2022 End: 03-05-2022 Exposure to SARS-CoV-2 (event) Not sure [facility] Progress note 03-05-2022 Note Date & Type Note Facility 03-05-2022 Note HNO ID: [id number] Author: Mansi Galarza DO Service: Vascular Surgery Author Type: Physician Type: Progress Notes Filed: 03/13/2022 10:24 AM Note Text: NAME: ALVINA PEREZ [facility] NO: [id number] DATE OF SERVICE: 03/05/2022 Subjective: Ms. Perez [...] needed. Mansi Galarza D.O. KB/089 Audio #: [id number] Date Dictated: 03/05/2022 07:45:29 Date Typed: 03/12/2022 05:37:43 Date Revised: [facility] Progress note 03-05-2022 Note Date & Type Note Facility 03-05-2022 Note HNO ID: [id number] Author: Mansi Galarza DO Service: ? Author Type: Physician Type: Progress Notes Filed: 03/13/2022 12:24 PM Note Text: This office note has been dictated. Mansi Galarza DO [facility] Progress note 03-05-2022 Note Date & Type Note Facility 03-05-2022 Note HNO ID: [id number] Author: Tamiko Short RN Service: ? Author Type: Registered Nurse Type: Progress Notes Filed: 03/13/2022 12:24 PM Note Text: Patient presents with: Established Patient Follow Up AMB ROOMING INTAKE FLOWSHEET DATA Risk Screening Do you have concerns about personal safety or safety in the home?: No [facility] History of Present illness Narrative 03-05-2022 Mansi [...] in the home?: No NAME: ALVINA PEREZ [facility] NO: [id number] DATE OF SERVICE: 03/05/2022 Subjective: Ms. Perez [...] needed. Mansi Galarza D.O. KB/089 Audio #: [id number] Date Dictated: 03/05/2022 07:45:29 Date Typed: 03/12/2022 05:37:43 Date Revised: documented in this encounter [facility] Progress note 09-04-2021 Note Date & Type Note Facility 09-04-2021 Note HNO ID: [id number] Author: Mansi Galarza DO Service: Vascular Surgery Author Type: Physician Type: Progress Notes Filed: 09/12/2021 3:30 PM Note Text: NAME: ALVINA PEREZ [facility] NO: [id number] DATE OF SERVICE: 09/04/2021 Subjective: Ms. Perez [...] concerns. Mansi Galarza D.O. KB/089 Audio #: [id number] Date Dictated: 09/04/2021 08:46:48 Date Typed: 09/12/2021 13:53:35 Date Revised: [facility] Progress note 09-04-2021 Note Date & Type Note Facility 09-04-2021 Note HNO ID: [id number] Author: Mansi Galarza, DO Service: ? Author Type: Physician Type: Progress Notes Filed: 09/04/2021 9:36 AM Note Text: This office note has been dictated. Mansi Galarza DO [facility] Progress note 08-21-2021 Note Date & Type Note Facility 08-21-2021 Note HNO ID: [id number] Author: Mansi Galarza, DO Service: ? Author Type: Physician Type: Progress Notes Filed: 09/04/2021 2:28 PM Note Text: VASCULAR SURGERY INITIAL CONSULT SERVICE DATE: 08/21/2021 SERVICE TIME: 9:00 AM PRIMARY CARE PHYSICIAN: Abdiel Salazar MD REFERRING PROVIDER: Abdiel Salazar MD ([facility]) [address] [place] [id number] Consult requested for an opinion regarding the [...] NAME: Alvina GARCIA (more content not included)... [facility] Evaluation note Note Date & Type Note Facility documented in this encounter [facility] Summary Purpose Family History No Family [...] or prosecute any alcohol or drug abuse patient.[facility] Reason for Visit (unrecogniz ed section [...] BE BASED ON THE PRIMARY CLINICAL RECORDS. [employer] provides no warranty or guarantee of the accuracy or completeness of information in this document.
[2023-10-12 10:48] LABS: Troponin-I HS 6 pg/mL (3.0-54.0)
[2023-10-12 12:22] LABS: Thyroid Stim Hormone (TSH) 4.57 uIU/mL (0.358-3.74)
--- NOTE | 2023-10-12 13:14 | HP.PCM.HOS_ITS ---
HPI - General General Date of Admission: 10/12/23 HPI Narrative SIERRA PEREZ, is a 88 F who presents to the hospital complaining of chest pressure/pain that started at 4 AM. She has had similar chest pain in the past but it was attributed to GERD and she has never had any extensive cardiac workup, no stents. She has a history of hypertension that she is on propranolol for and she is hypothyroid and on Synthroid. She was given a dose of nitro glycerin in the ER and she states that she no longer has any chest pain or discomfort at the moment. EKG was nonischemic but she does have a family history with 2 brothers who have had multiple stents. Initial troponin was 7 and repeat troponin was 6 but given her age and her family history she met criteria for observation. In the workup of her chest pain, D-dimer was obtained in the ER and it was elevated to 1.85 therefore CTA of the chest was done that was normal with no PEs. [facility] Medical History Atrophic vaginitis Back pain Bronchitis Carpal tunnel syndrome on both sides Chronic cough Colon polyp COPD (chronic obstructive pulmonary disease) Hypercholesteremia Hypothyroid Kidney stone Night sweats Home Medications levothyroxine 50 mcg tablet (Synthroid) 50 mcg PO DAILY 09/23/18 [History Last Taken 10/11/23] multivitamin,jn-mrxf-lkbxbnrm (Complete Multivitamin tablet) 1 tab PO DAILY 09/23/18 [History Last Taken 10/11/23] pyridoxine (vitamin B6) 100 mg tablet 100 mg PO DAILY 09/23/18 [History Last Taken 10/11/23] krill yxk-df-1-fin-xgn-ljnkrhqyyxjcr 300 mg-90 mg-24 mg-50 mg capsule 1 ea PO DAILY 07/15/19 [History Last Taken 10/11/23] magnesium amino acid chelate 100 mg tablet 100 mg PO DAILY 07/15/19 [History Last Taken 10/11/23] cholecalciferol (vitamin D3) 25 mcg (1,000 unit) tablet (Vitamin D3) 25 mcg PO DAILY 10/12/23 [History Last Taken 10/11/23] melatonin 10 mg capsule 10 mg PO QHS 10/12/23 [History Last Taken 10/11/23] propranolol 10 mg tablet 10 mg PO QHS 10/12/23 [History Last Taken 10/11/23] Allergy/AdvReac Type Severity Reaction Status Date / Time ciprofloxacin Allergy Severe headaches Verified 07/15/19 13:41 melatonin AdvReac Severe Anaphylaxis Verified 07/15/19 13:41 Zrbcjyi-ZAG-KeB Reductase AdvReac Severe confusion Verified 07/15/19 13:41 Inhibitor [Tvuhpot-Poi-Zul Reductase Inhibitor] Family History Mother CAD (coronary artery disease) Father Glaucoma Heart disease Brother Diabetes Cancer larynex CAD (coronary artery disease) Heart disease Surgical History cervical stumpectomy H/O breast augmentation H/O ligation of vein H/O vitrectomy H/O: hysterectomy History of cholecystectomy History of removal of breast implant History of tonsillectomy Social History Smoking Status: Never smoker second hand exposure: No ROS Constitutional Constitutional: Denies chills, fatigue, fever(s) or malaise Eyes Eyes: Denies blurry vision ENT HEENT: Denies headache(s) or nasal discharge Cardiovascular Cardiovascular: Reports chest pain; Denies dyspnea on exertion or syncope Respiratory/Chest Respiratory/Chest: Denies cough, shortness of breath at rest or shortness of breath with exertion Gastrointestinal Gastrointestinal: Denies constipation, diarrhea, nausea or vomiting Genitourinary Genitourinary: Denies dysuria Neurologic Neurologic: Denies focal weakness, numbness or tremor(s) Psychiatric Psychiatric: Denies anxiety or depression Vital Signs Vital Signs Vital Signs: 10/12/23 07:55 10/12/23 08:20 10/12/23 08:22 Temperature 97.8 F Temperature Source Temporal Pulse Rate 65 57 L Respiratory Rate 18 Respiratory Effort Respiratory Depth Respiratory Pattern Blood Pressure 235/93 H 207/86 H Blood Pressure Mean 140 Blood Pressure Source Blood Pressure Position Blood Pressure Location Pulse Ox 98 Oxygen Delivery Method Room Air Room Air 10/12/23 08:25 10/12/23 08:27 10/12/23 09:29 Temperature Temperature Source Pulse Rate 50 L 51 L Respiratory Rate 15 12 Respiratory Effort Normal Non-Labored Respiratory Depth Respiratory Pattern Blood Pressure 207/86 H 164/72 H Blood Pressure Mean 126 102 Blood Pressure Source Blood Pressure Position Blood Pressure Location Pulse Ox 93 90 Oxygen Delivery Method Room Air Room Air 10/12/23 10:29 10/12/23 10:57 10/12/23 11:31 Temperature 97.8 F 97.9 F Temperature Source Oral Pulse Rate 46 L 41 L Respiratory Rate 18 16 Respiratory Effort Normal Non-Labored Respiratory Depth Normal Respiratory Pattern Normal Blood Pressure 108/94 H 156/68 H Blood Pressure Mean 98 97 Blood Pressure Source Monitor Blood Pressure Position Semi-Fowlers Blood Pressure Location Left Arm Pulse Ox 94 98 Oxygen Delivery Method Room Air Room Air Weight Weight: 168 lb 13.985 oz Body Mass Index (BMI) 29.0 Physical Exam Narrative General: Alert, Oriented x3, Cooperative, No apparent distress HEENT: Atraumatic, PERRLA, EOMI, Normocephalic Oral: Moist Mucosa Neck: Supple, No JVD Lungs: Diminished, Normal air movement, No rhonchi, No wheeze, No rales Cardiovascular: Regular rate, Regular Rhythm, Normal S1, Normal S2, No murmurs Abdomen: Soft, Non Tender, Non-Distended, No Hepato-splenomegaly Extremities: No edema, Capillary Refill Less than 3 Seconds Skin: No rashes, No breakdown Musculoskeletal: No Tenderness to Palpation of Joints or Extremities Neurological: No focal neurological deficits, Motor Exam 5/5 strength throug hout, Sensory exam intact to light touch and pain Psych/Mental Status: Normal Affect, Appropriate Results Lab / Micro Data 10/12/23 08:10 10/12/23 08:10 Labs: Laboratory Results - last 24 hr 10/12/23 08:10: WBC 4.9, RBC 4.05 L, Hgb 12.4, Hct 37.2, MCV 91.9, MCH 30.6, MCHC 33.3, RDW Std Deviation 46.9 H, RDW Coeff of Kimber 13.8, Plt Count 182, MPV 10.6, Immature Gran % (Auto) 0.400, Neut % (Auto) 41.5 L, Lymph % (Auto) 38.4, [place] % (Auto) 14.6 H, Eos % (Auto) 4.3, Baso % (Auto) 0.8, Absolute Neuts (auto) 2.0, Absolute Lymphs (auto) 1.86, Nucleated RBC % 0, D-Dimer Quant (PE/DVT) 1.85 H*, Sodium 143, Potassium 4.4, Chloride 114 H, Carbon Dioxide 27.0, Anion Gap 2 L, BUN 22 H, Creatinine 1.04 H, Estim Creat Clear Calc 37.33, Est GFR (MDRD) Af Amer 64, Est GFR (MDRD) Non-Af 53 L, BUN/Creatinine Ratio 21.2 H, Glucose 113 H, Calcium 9.7, Troponin I High Sens 7, TSH 4.57 H 10/12/23 10:29: Troponin I High Sens 6 Imaging Radiology Impression Chest X-Ray 10/12/23 08:25 IMPRESSION: Degenerative changes, as described above. No demonstrated acute cardiopulmonary process. Electronically Signed: Chicho Jay MD at 8:41 EST , Chest CTA 10/12/23 08:44 IMPRESSION: 1. No demonstrated pulmonary embolism or arterial dissection. 2. A trace right pleural effusion is present. No visualized pneumonic consolidation. Mild interstitial thickening and groundglass edema is present in bilateral lower lobes. No nodules are present. Electronically Signed: Chicho Jay MD at 9:56 EST , Assessment & Plan Assessment/Plan (1) Chest pain: PLAN: Plan 1. Chest pain/HTN ? Will obtain serial troponins ? Plan for stress test in the morning ? Continue with her home propranolol ? We will monitor make adjustments as necessary ? She is allergic to statins ? Echo in 2021 with an EF of 60% and PASP of 27 mmHg with a stage I diastolic dysfunction 2. Hypothyroidism ? Stable ? Continue with Synthroid ? TSH is slightly elevated at 4.57 DVT: Ambulation 65 minutes was spent on direct patient care, including documentation as well as chart review and collaboration with colleagues Charges/Coding Visit Charges Inpatient E&M: 90070 Init Hosp L2
[2023-10-12 15:01] LABS: Troponin-I HS 6 pg/mL (3.0-54.0)
[2023-10-12] MEDS: 0.9% Saline Lock 10 ML Syringe IV (21:01)
[2023-10-12] MEDS: MELATONIN 10 MG TABLET PO (21:21)
[2023-10-12] MEDS: Propranolol 10 MG Tablet PO (21:21)
[2023-10-13 03:30] VITALS: O2SAT 98
[2023-10-13 03:39] VITALS: BP 150/67; PULSE 59; RESP 16; TEMP 36.6; O2SAT 98
[2023-10-13 06:21] LABS: Absolute Lymphocyte Count 1.91 X10^3/uL (0.83-4.51); Absolute Neutrophil Count 2.4 X10^3/uL (2.0-7.7); Basophil# 0.04 X10^3/uL; Basophil% 0.8 % (0-1); Eosinophil# 0.21 X10^3/uL; Hematocrit 36.2 % (37-47); Hemoglobin 11.7 g/dL (12.0-15.0); Lymphocyte # 1.91 X10^3/ul (0.83-4.51); Mean Corp Hgb Conc 32.3 g/dL (32-36); Mean Corpuscular Hgb 30.2 pg (27.0-32.0); Mean Corpuscular Volume 93.3 fL (81-99); Monocyte# 0.74 X10^3/uL; Monocyte% 13.9 % (0-10); NRBC Flagged by Analyzer 0 % (0-5); Neutrophil # 2.37 X10^3/uL (2.7-7.7); Neutrophil % 44.5 % (47-70); Platelet Count 185 K/mm3 (150-450); RBC Distribution Width CV 14.1 % (11.6-14.6); RBC Distribution Width SD 47.7 fl (35.1-43.9); Red Blood Count 3.88 M/mm3 (4.2-5.4); White Blood Count 5.3 K/mm3 (4.4-11.0)
[2023-10-13 06:32] VITALS: BP 160/71; PULSE 57; RESP 17; TEMP 36.6; O2SAT 97
[2023-10-13 06:48] LABS: Anion Gap 1 (5-15); BUN 24 mg/dL (7-18); BUN/Creat Ratio 25.8 RATIO (10-20); Calcium,Total 8.6 mg/dL (8.5-10.1); Chloride 112 mmol/L (98-107); Creatinine, Serum 0.93 mg/dL (0.55-1.02); EST Glomerular Filtration Rate 60 mL/min (>60); Est Glom Filt Rate - Afr Amer 73 mL/min (>60); Estimated Creatinine Clearance 41.89 ml/min; Glucose 105 mg/dL (74-106); Potassium 3.9 mmol/L (3.5-5.1); Sodium Level 139 mmol/L (136-145)
[2023-10-13 07:30] VITALS: O2SAT 96
[2023-10-13 08:56] VITALS: BP 167/67; PULSE 54; RESP 16; TEMP 36.4; O2SAT 97
[2023-10-13] MEDS: amLODIPine 10 MG Tablet PO (08:57)
[2023-10-13 10:00] VITALS: BP 164/70; PULSE 59; RESP 16; TEMP 36.5; O2SAT 95
--- NOTE | 2023-10-13 10:33 | PCM.PN.HOSP ---
Reason for Visit Reason for Visit: Diagnoses Chest pain, unspecified (10/12/23) Subjective Subjective Patient is an 88-year-old lady admitted with chest pain Objective Data Objective Data Vital Signs: Vital Signs Temp Pulse Resp BP Pulse Ox O2 Del Method O2 Flow Rate 97.7 F L 59 L 16 164/70 H 95 Room Air 2 10/13/23 10:00 10/13/23 10:00 10/13/23 10:00 10/13/23 10:00 10/13/23 10:00 10/13/23 10:00 10/13/23 07:30 Oxygen Flow Rate (L/min) 2 Oxygen Delivery Method Room Air Weight: 76.6 kg Body Mass Index (BMI) 29.0 Intake & Output: Intake and Output for Last 24 Hours 10/11/23 10/12/23 10/13/23 23:59 23:59 23:59 Intake Total 2140 / 2140 Balance 2140 / 2140 Lab / Micro Data 10/13/23 05:21 10/13/23 05:21 Labs: Laboratory Results - last 24 hr 10/12/23 08:10: TSH 4.57 H 10/12/23 10:29: Troponin I High Sens 6 10/12/23 14:38: Troponin I High Sens 6 10/13/23 05:21: WBC 5.3, RBC 3.88 L, Hgb 11.7 L, Hct 36.2 L, MCV 93.3, MCH 30.2, MCHC 32.3, RDW Std Deviation 47.7 H, RDW Coeff of Kimber 14.1, Plt Count 185, MPV 11.0, Immature Gran % (Auto) 0.800, Neut % (Auto) 44.5 L, Lymph % (Auto) 36.0, [place] % (Auto) 13.9 H, Eos % (Auto) 4.0, Baso % (Auto) 0.8, Absolute Neuts (auto) 2.4, Absolute Lymphs (auto) 1.91, Nucleated RBC % 0, Sodium 139, Potassium 3.9, Chloride 112 H, Carbon Dioxide 26.0, Anion Gap 1 L, BUN 24 H, Creatinine 0.93, Estim Creat Clear Calc 41.89, Est GFR (MDRD) Af Amer 73, Est GFR (MDRD) Non-Af 60, BUN/Creatinine Ratio 25.8 H, Glucose 105, Calcium 8.6 Physical Exam Narrative GENERAL: cooperative HEENT: Atraumatic; normocephalic EYES; Anicteric, Normal Conjunctiva NECK; supple, normal thyroid, RESPIRATORY: Diminished to auscultation CARDIOVASCULAR: Regular S1 S2, GI: soft, normoactive bowel sounds, : No Renal angle tenderness; EXTREMITIES: No edema, no clubbing, MUSCULOSKELETAL: no muscle wasting NEURO: Awake; no lateralizing signs. SKIN: No Rash PSYCH; Flat affect Assessment & Plan Assessment/Plan (1) Chest pain: PLAN: Plan Patient is an 88-year-old lady admitted with chest pain 1. Chest pain ? ME ruled out with serial cardiac enzymes patient underwent nuclear stress test results pending if negative patient will be discharged home if positive will obtain cardiology consultation 2. Essential hypertension. Patient previously not on any antihypertensives. Will continue with monitoring and prescribe antihypertensives if patient blood pressure still remains elevated 3. Dyslipidemia ? Patient apparently has intolerance to statin therapy 4. Hypothyroidism - Patient is on levothyroxine home dose continued Time spent in the patient's overall evaluation,decision-making process, review of diagnostic data, adjustment of management, discussion with other providers, nursing nursing and ancillary staff involved in patient's care documentation, 35 Minutes
--- NOTE | 2023-10-13 14:13 | CHAPLAIN ---
Type of Pastoral Visit _x__ Initial Visit ___ Follow-up Visit ___ On-call Visit ___ General Patient Visit ___ Spiritual Assessment ___ Family Conference ___ Bereavement ___ Rapid Response ___ Code Blue ___ Other (describe below) Pastoral Care Referral From _x__ Patient ___ Family ___ Nurse ___ Physician ___ Entry Level Account Executive ___ Greenskeeper Laborer ___ Other (describe below) Sacrament/Intervention _x__ Active listening ___ Anointing ___ Judaism ___ Bereavement ___ Communion _x__ Kym exploration ___ _x__ Life review _x__ Prayer ___ Reconciliation ___ Sacrament of Sick ___ Supportive presence ___ Wedding ___ Other (describe below) Pastoral Comments patient is very welcoming of spiritual care support and briefly describes her situation and health concern; pt is waiting for test results; pt also is engaging in conversation and speaks of her family, her beliefs, her passions in life which include care for others; pt welcomes someone to talk with and to have prayer spoken for her life; pt also prays audibly which shows engagement in the spiritual care process
--- NOTE | 2023-10-13 15:27 | CASEMGMT ---
Met with?oatient to complete BARRIOS form. BARRIOS form explained to?patient. Patient declined to sign. Copy provided and original placed in chart. ? Asha Kilgore, Discharge Planning Asst
--- NOTE | 2023-10-13 16:35 | PCM.DC.SUM ---
Providers Date of Admission: 10/12/23 Primary Care Physician: Dr. Abdiel Salazar MD Reason For Visit: chest pain Diagnosis Discharge Diagnosis (1) Chest pain: Status: Acute Code(s): R07.9 - Chest pain, unspecified Plan Patient is an 88-year-old lady admitted with chest pain 1. Chest pain ? NM ruled out with serial cardiac enzymes patient underwent nuclear stress test results pending if negative patient will be discharged home if positive will obtain cardiology consultation ? Patient nuclear stress test came back negative, patient was discharged home to follow-up with PCP 2. Essential hypertension. Patient previously not on any antihypertensives. Will continue with monitoring and prescribe antihypertensives if patient blood pressure still remains elevated ? Prescriptions written for antihypertensives on discharge 3. Dyslipidemia ? Patient apparently has intolerance to statin therapy 4. Hypothyroidism - Patient is on levothyroxine home dose continued Time spent in the patient's overall evaluation,decision-making process, review of diagnostic data, adjustment of management, discussion with other providers, nursing nursing and ancillary staff involved in patient's care documentation, 35 Minutes Medications at Discharge Home Medications levothyroxine 50 mcg tablet (Synthroid) 50 mcg PO DAILY 09/23/18 multivitamin,hp-tdeu-wpcqxcza (Complete Multivitamin tablet) 1 tab PO DAILY 09/23/18 pyridoxine (vitamin B6) 100 mg tablet 100 mg PO DAILY 09/23/18 krill roj-jz-4-lzb-dmr-dtphzujndprqk 300 mg-90 mg-24 mg-50 mg capsule 1 ea PO DAILY 07/15/19 magnesium amino acid chelate 100 mg tablet 100 mg PO DAILY 07/15/19 cholecalciferol (vitamin D3) 25 mcg (1,000 unit) tablet (Vitamin D3) 25 mcg PO DAILY 10/12/23 melatonin 10 mg capsule 10 mg PO QHS 10/12/23 propranolol 10 mg tablet 10 mg PO QHS 10/12/23 amlodipine 10 mg tablet 10 mg PO DAILY #6 tabs 10/13/23 Physical Exam Narrative GENERAL: cooperative HEENT: Atraumatic; normocephalic EYES; Anicteric, Normal Conjunctiva NECK; supple, normal thyroid, RESPIRATORY: Diminished to auscultation CARDIOVASCULAR: Regular S1 S2, GI: soft, normoactive bowel sounds, : No Renal angle tenderness; EXTREMITIES: No edema, no clubbing, MUSCULOSKELETAL: no muscle wasting NEURO: Awake; no lateralizing signs. SKIN: No Rash PSYCH; Flat affect Weight / BMI Weight Weight: 76.6 kg Body Mass Index (BMI) 29.0 ABG / Lab / Microbiology Data 10/13/23 05:21 10/13/23 05:21 Laboratory: Laboratory Results - last 24 hr 10/13/23 05:21: WBC 5.3, RBC 3.88 L, Hgb 11.7 L, Hct 36.2 L, MCV 93.3, MCH 30.2, MCHC 32.3, RDW Std Deviation 47.7 H, RDW Coeff of Kimber 14.1, Plt Count 185, MPV 11.0, Immature Gran % (Auto) 0.800, Neut % (Auto) 44.5 L, Lymph % (Auto) 36.0, [place] % (Auto) 13.9 H, Eos % (Auto) 4.0, Baso % (Auto) 0.8, Absolute Neuts (auto) 2.4, Absolute Lymphs (auto) 1.91, Nucleated RBC % 0, Sodium 139, Potassium 3.9, Chloride 112 H, Carbon Dioxide 26.0, Anion Gap 1 L, BUN 24 H, Creatinine 0.93, Estim Creat Clear Calc 41.89, Est GFR (MDRD) Af Amer 73, Est GFR (MDRD) Non-Af 60, BUN/Creatinine Ratio 25.8 H, Glucose 105, Calcium 8.6 D/C Instructions Discharge Diet: No restrictions Discharge Activity: Return to Normal Activity Call your doctor if you observe: Fever of 101 or Higher, Shortness of breath, Fainting spells and Chest pain Meaningful Use Info Meaningful Use Diagnoses (Choose all that apply): None applicable Discharge Plan Admission Admit Date/Time: 10/12/23 10:20 Attending Provider: Ovi Rubi Primary Care Provider: Abdiel Salazar Consulting Providers: Gerber Cm Discharge Orders/Prescriptions Prescriptions: New amlodipine 10 mg Tablet 10 mg PO DAILY Qty: 6 0RF Continued levothyroxine [Synthroid] 50 mcg tablet 50 mcg PO DAILY pyridoxine (vitamin B6) 100 mg tablet 100 mg PO DAILY Complete Multivitamin tablet 1 tab PO DAILY magnesium amino acid chelate 100 MG tablet 100 mg PO DAILY uabto-nfoyv-7-kda-iph-urgbba 1 EACH capsule 1 ea PO DAILY propranolol 10 mg tablet 10 mg PO QHS melatonin 10 mg capsule 10 mg PO QHS cholecalciferol (vitamin D3) [Vitamin D3] 25 mcg (1,000 unit) tablet 25 mcg PO DAILY Referrals / Follow Up: Abdiel Salazar MD [Primary Care Provider] - Disposition Disposition (needs filled in before D/C Order can be placed): Home, Self Care Charges/Coding Visit Charges Inpatient E&M: 27282 Disch Hosp >30min
--- NOTE | 2023-10-13 17:39 | STRESSREP ---
Stress Test Report Date: 10/13/2022 Procedure: Pharmacologic stress nuclear imaging study Indications: Chest pain Consent: Per the patient Procedure: The patient underwent pharmacologic (Regadenoson 0.4mg ) evaluation with a peak heart rate of 70 beats per minute (59%predicted maximal heart rate) and a peak blood pressure of 128/80 mmHg. The baseline ECG demonstrated sinus rhythm. The peak pharmacologic ECG demonstrated no ischemic changes. There were no cardiac dysrhythmias pretest, during pharmacologic infusion, or recovery. There was no complaint of chest discomfort during pharmacologic infusion or recovery. The patient was injected with 11.7 millicuries of technetium 99m Cardiolite and subsequently rest SPECT Cardiolite nuclear imaging was obtained in the horizontal long, vertical long, and short axis views. The patient underwent pharmacologic (Regadenoson) evaluation. The patient was injected with 33.9 millicuries of technetium 99m Cardiolite and subsequently stress SPECT Cardiolite nuclear imaging was obtained in the horizontal long, vertical long, and short axis views. A gated Cardiolite study at peak stress was obtained. The examination was stopped secondary to completion of protocol. Rest and stress SPECT Cardiolite nuclear imaging status post realignment, normalization, and attenuation correction demonstrate no fixed or reversible perfusion defects. There is end systolic thickening and brightening. The gated Cardiolite study demonstrates myocardial thickening and inward wall motion. The reported LVEF is 84%. Impression: 1. Pharmacologic (Regadenoson) evaluation 2. Peak pharmacologic ECG with no ischemic change. 3. There were no cardiac dysrhythmias pretest, during pharmacologic infusion, or recovery. 5. Rest and stress SPECT Cardiolite nuclear imaging demonstrate relative uniform tracer uptake and myocardial perfusion appearing within normal limits. 6. The gated Cardiolite study reports an LVEF of 84%. This note was generated with [employer] software. It may contain incorrect words, spelling, and punctuation that were not noted in checking the note before signing. 10/13/2022 d chest
== END 2023-10-13 17:59 | disposition home or self-care (01) ==
LOC: ED 10:10 → PCU 10:25
PROVIDERS: Admitting Provider Family Medicine; Emergency Provider Emergency Medicine; PCP Family Medicine; Visit Provider Internal Medicine
DX: R07.89 Other chest pain (principal); J44.9 Chronic obstructive pulmonary disease, unspecified; I10 Essential (primary) hypertension; R00.1 Bradycardia, unspecified; E78.00 Pure hypercholesterolemia, unspecified; K21.9 Gastro-esophageal reflux disease without esophagitis; E03.9 Hypothyroidism, unspecified; Z79.890 Hormone replacement therapy; Z79.899 Other long term (current) drug therapy
CPT/HCPCS: 36415; 71045; 71275; 78452; 80048; 84443; 84484; 85025; 85379; 93005; 93017; 96360; 96361; 99221; 99285; A9500; J7030; Q9967; A4216; G0378; J2785

== ENCOUNTER → 2023-10-21 | Outpatient (CLI) | payer MEDICARE, OTHER, SELFPAY ==
[2023-10-21 17:47] LABS: Absolute Lymphocyte Count 1.61 X10^3/uL (0.83-4.51); Absolute Neutrophil Count 3.6 X10^3/uL (2.0-7.7); Basophil# 0.05 X10^3/uL; Basophil% 0.8 % (0-1); Eosinophils% 3.2 % (0-5); Hematocrit 39.7 % (37-47); Hemoglobin 13.1 g/dL (12.0-15.0); Lymphocyte # 1.61 X10^3/ul (0.83-4.51); Lymphocyte % 25.7 % (19-41); Mean Corpuscular Volume 94.1 fL (81-99); Mean Platelet Vol. 10.9 fl (6.2-12.0); Monocyte# 0.79 X10^3/uL; Monocyte% 12.6 % (0-10); NRBC Flagged by Analyzer 0 % (0-5); Neutrophil # 3.58 X10^3/uL (2.7-7.7); Neutrophil % 57.2 % (47-70); Platelet Count 200 K/mm3 (150-450); RBC Distribution Width SD 48.7 fl (35.1-43.9); RET-HE 34.9 pg (30-35); Red Blood Count 4.22 M/mm3 (4.2-5.4); Reticulocyte Count 1.61 % (0.5-1.5); White Blood Count 6.3 K/mm3 (4.4-11.0)
[2023-10-21 18:04] LABS: Vitamin B12 411 pg/mL (211-911)
[2023-10-21 18:28] LABS: ALB/GLOB Ratio 1.2 RATIO (0.9-2.4); AST(SGOT) 22 U/L (15-37); Alanine Aminotransfer ALT/SGPT 32 U/L (13-56); Alkaline Phosphatase 62 U/L (45-117); Anion Gap 7 (5-15); BUN 30 mg/dL (7-18); BUN/Creat Ratio 26.5 RATIO (10-20); Calcium,Total 9.2 mg/dL (8.5-10.1); Chloride 110 mmol/L (98-107); Creatinine, Serum 1.13 mg/dL (0.55-1.02); EST Glomerular Filtration Rate 48 mL/min (>60); Est Glom Filt Rate - Afr Amer 58 mL/min (>60); Globulin 3.3 g/dL (2.2-4.2); Glucose 94 mg/dL (74-106); Iron 146 ug/dL (50-170); Iron Binding Capacity,Total 373 ug/dL (250-450); Potassium 4.7 mmol/L (3.5-5.1); Protein, Total 7.3 g/dL (6.4-8.2); Sodium Level 142 mmol/L (136-145)
--- OUTSIDE RECORDS SUMMARY | 2023-10-21 20:15 | XMS RPT_ITS | CCD ---
Author Name Unknown Address [address] [place] [address] Organization [facility] Care Team Providers Care Teletypesetter Name Role Phone Martin MAYORGA, Abdiel Kearney Primary Care Provider Allergies Allergy Classification Reported Allergen(s) Allergy Type Date of Onset Reaction(s) Facility (1 source) celecoxib Drug Allergy 1 Rash [facility] (1 source) Ciprofloxacin Drug Allergy 7 Mental Status Change [facility] (1 source) Melatonin Drug Allergy 7 Swelling [facility] (1 source) Pravastatin Drug Allergy 9 Mental Status Change [facility] Work Phone: Medications Completed/Discontinued Medications Medication [...] 69.85 kg Mansi Galarza DO Work Phone: [facility] 03-05-2022 09:03-0400 Diastolic blood pressure 80 mm[Hg] Mansi Galarza DO Work Phone: [facility] 03-05-2022 09:03-0400 Heart rate 64 /min Mansi Galarza DO Work Phone: [facility] 03-05-2022 09:03-0400 SaO2% (BldA) [Mass fraction] 98 % Mansi Galarza DO Work Phone: [facility] 03-05-2022 09:03-0400 Systolic blood pressure 146 mm[Hg] Mansi Galarza DO Work Phone: [facility] Encounters Encounter Date Encounter Type Care Provider Facility Start: 03-05-2022 End: 03-05-2022 Patient encounter procedure Mansi Galarza DO Work Phone: Vascular Surgery Plan of Treatment Date Care Activity Detail Author Start: 05-09-2022 Influenza vaccination INFLUENZA (#1) [facility] Start: 11-05-2021 COVID-19 VACCINE (4 - Booster for Moderna series) COVID-19 VACCINE (4 - Booster for Moderna series) [facility] Start: 09-08-2021 ADVANCE DIRECTIVE DISCUSSION ADVANCE DIRECTIVE DISCUSSION [facility] Start: 11-28-2020 DIABETES SCREEN DIABETES SCREEN [facility] Start: 2000 BONE DENSITY BONE DENSITY [facility] Start: 1985 SHINGRIX VACCINE (1 of 2) TOMLINSON GRIX VACCINE (1 of 2) [facility] Start: 1954 Urine microalbumin profile DTAP,TDAP ,TD (1 - Tdap) [facility] Start: 1953 SPIROMETRY SPIROMETRY [facility] Start: 1941 PNEUMOCOCCAL: 65+ (1 - PCV) PNEUMOCOCCAL: 65+ (1 - PCV) [facility] Immunizations Immunization Date Immunization Notes Care Provider Jeffry finney 07-23-2016 influenza, seasonal, injectable Mansi Galarza DO Work Phone: [facility] Payers Date Payer Category Payer Unknown [employer] SUPPLEMENT [id number] 2015-Present [phone] [id number] [place] [address] Indemnity [id number] 2000 Medicare MEDICARE MEDICAR E A AND B [id number] 2000-Present [phone] [place] [address] Medicare [id number] Social History Date Type Detail Facility Start: 09-08-2016 Tobacco smoking stat us ILIS Never smoked tobacco [facility] Start: 09-08-2016 Tobacco use and exposure Smoke less tobacco non-user [facility] Start: 03-05-2022 Alcohol intake Current drinke r of alcohol (finding) [facility] Start: 11-26-2016 History SDOH Alcohol Comment 1 cocktail daily before dinner [facility] Start: 1935 Sex Assigned At Not on file [facility] Start: 02-23-2022 End: 03-05-2022 Exposure to SARS-CoV-2 (event) Not sure [facility] Progress note 03-05-2022 Note Date & Type Note Facility 03-05-2022 Note HNO ID: [id number] Author: Mansi Galarza DO Service: Vascular Surgery Author Type: Physician Type: Progress Notes Filed: 03/13/2022 10:24 AM Note Text: NAME: [facility] NO: [id number] DATE OF SERVICE: 03/05/2022 Subjective: Ms. Perez [...] needed. Mansi Galarza D.O. KB/089 Audio #: [id number] Date Dictated: 03/05/2022 07:45:29 Date Typed: 03/12/2022 05:37:43 Date Revised: [facility] Progress note 03-05-2022 Note Date & Type Note Facility 03-05-2022 Note HNO ID: [id number] Author: Mansi Galarza DO Service: ? Author Type: Physician Type: Progress Notes Filed: 03/13/2022 12:24 PM Note Text: This office note has been dictated. Mansi Galarza DO [facility] Progress note 03-05-2022 Note Date & Type Note Facility 03-05-2022 Note HNO ID: [id number] Author: Tamiko Short RN Service: ? Author Type: Registered Nurse Type: Progress Notes Filed: 03/13/2022 12:24 PM Note Text: Patient presents with: Established Patient Follow Up AMB ROOMING INTAKE FLOWSHEET DATA Risk Screening Do you have concerns about personal safety or safety in the home?: No [facility] History of Present illness Narrative 03-05-2022 Mansi [...] in the home?: No NAME: [facility] NO: [id number] DATE OF SERVICE: 03/05/2022 Subjective: Ms. Perez [...] needed. Mansi Galarza D.O. KB/089 Audio #: [id number] Date Dictated: 03/05/2022 07:45:29 Date Typed: 03/12/2022 05:37:43 Date Revised: documented in this encounter [facility] Progress note 09-04-2021 Note Date & Type Note Facility 09-04-2021 Note HNO ID: [id number] Author: Mansi Galarza DO Service: Vascular Surgery Author Type: Physician Type: Progress Notes Filed: 09/12/2021 3:30 PM Note Text: NAME: [facility] NO: [id number] DATE OF SERVICE: 09/04/2021 Subjective: Ms. Perez [...] concerns. Mansi Galarza D.O. KB/089 Audio #: [id number] Date Dictated: 09/04/2021 08:46:48 Date Typed: 09/12/2021 13:53:35 Date Revised: [facility] Progress note 09-04-2021 Note Date & Type Note Facility 09-04-2021 Note HNO ID: [id number] Author: Mansi Galarza, DO Service: ? Author Type: Physician Type: Progress Notes Filed: 09/04/2021 9:36 AM Note Text: This office note has been dictated. Mansi Galarza DO [facility] Progress note 08-21-2021 Note Date & Type Note Facility 08-21-2021 Note HNO ID: [id number] Author: Mansi Galarza, DO Service: ? Author Type: Physician Type: Progress Notes Filed: 09/04/2021 2:28 PM Note Text: VASCULAR SURGERY INITIAL CONSULT SERVICE DATE: 08/21/2021 SERVICE TIME: 9:00 AM PRIMARY CARE PHYSICIAN: Abdiel Salazar MD REFERRING PROVIDER: Abdiel Salazar MD ([facility]) [address] [place] [id number] Consult requested for an opinion regarding the [...] NAME: Alvina GARCIA (more content not included)... [facility] Evaluation note Note Date & Type Note Facility documented in this encounter [facility] Summary Purpose Family History No Family [...] or prosecute any alcohol or drug abuse patient.[facility] Reason for Visit (unrecogniz ed section [...] BE BASED ON THE PRIMARY CLINICAL RECORDS. [employer] provides no warranty or guarantee of the accuracy or completeness of information in this document.
== END | disposition home or self-care (01) ==
LOC: MFPLAB 16:14
PROVIDERS: PCP Family Medicine; Visit Provider Family Medicine
DX: D64.9 Anemia, unspecified (principal); I10 Essential (primary) hypertension
CPT/HCPCS: 36415; 80053; 82607; 82746; 83540; 83550; 85025; 85045

== ENCOUNTER → 2023-11-24 | Outpatient (CLI) | payer MEDICARE, OTHER, SELFPAY ==
--- NOTE | 2023-11-24 12:51 | ECHOD_ITS ---
Reason For Study: SOB Procedure This was a 2D Doppler, Color Flow transthoracic echocardiogram. Exam performed in department. Left Ventricle Normal LV size. Mild concentric left ventricular hypertrophy. The left ventricular ejection fraction is 65 %. Diastolic function is indeterminate. Right Ventricle Normal right ventricle. Atria The left and right atria are normal. Mitral Valve Trivial mitral valve insufficiency. Tricuspid Valve Mild tricuspid valve insufficiency. Normal pulmonary artery pressure. Aortic Valve Trisinus/trileaflet aortic valve. Trivial aortic valve insufficiency. Pulmonic Valve The pulmonic valve is not well visualized. Great Vessels Normal sized aortic root. Pericardium/Pleural No pericardial effusion. MMode/2D Measurements & Calculations LVIDd: 4.0 cm IVSd: 1.2 cm Ao root diam: 3.3 cm LVIDs: 2.8 cm LVPWd: 1.4 cm FS: 29.5 % LAV(MOD-bp): 72.9 ml LVAd ap4: 29.7 cm2 SV(MOD-sp4): 55.2 ml LAV(MOD-bp) Indexed: 40.3 ml/m2 LVLd ap4: 8.4 cm LAV(MOD-sp2): 62.1 ml EDV(MOD-sp4): 90.5 ml LAV(MOD-sp4): 84.1 ml EDV(sp4-el): 89.7 ml LVAs ap4: 15.8 cm2 LVLs ap4: 6.3 cm ESV(MOD-sp4): 35.3 ml ESV(sp4-el): 33.8 ml EF(MOD-sp4): 61.0 % EF(sp4-el): 62.4 % SV(sp4-el): 56.0 ml LA A4 area: 24.9 cm2 LA dimension(2D): 3.4 cm RA A4 area: 16.1 cm2 TAPSE: 1.9 cm Time Measurements MV dec time: 0.31 sec Doppler Measurements & Calculations MV E max bryan: 87.1 cm/sec Lat Peak E' Bryan: 6.6 cm/sec Med Peak E' Bryan: 6.9 cm/sec MV A max bryan: 98.1 cm/sec E/E' lat: 13.1 E/E' med: 12.7 MV E/A: 0.89 MV V2 max: 106.3 cm/sec Ao V2 max: 131.6 cm/sec MV max P.5 mmHg MV dec slope: 282.5 cm/sec2 Ao max P.9 mmHg MV V2 mean: 56.6 cm/sec Ao V2 mean: 88.2 cm/sec MV mean P.6 mmHg Ao mean P.6 mmHg MV V2 VTI: 41.0 cm Ao V2 VTI: 35.5 cm AV (velocity ratio): 0.78 LV V1 max: 99.2 cm/sec PA V2 max: 92.6 cm/sec TR max bryan: 255.3 cm/sec LV V1 max P.9 mmHg PA V2 mean: 69.1 cm/sec TR max P.1 mmHg LV V1 mean P.1 mmHg LV V1 mean: 67.2 cm/sec LV V1 VTI: 27.7 cm
== END | disposition home or self-care (01) ==
LOC: CVS 12:50
PROVIDERS: PCP Family Medicine; Referring Provider Family Medicine; Visit Provider Family Medicine
DX: R06.02 Shortness of breath (principal); I51.7 Cardiomegaly
CPT/HCPCS: 93306

== ENCOUNTER → 2023-12-23 | Outpatient (CLI) | payer MEDICARE, OTHER, SELFPAY ==
[2023-12-23 10:19] LABS: ALB/GLOB Ratio 1.2 RATIO (0.9-2.4); AST(SGOT) 21 U/L (15-37); Alanine Aminotransfer ALT/SGPT 30 U/L (13-56); Albumin, Serum 3.7 g/dL (3.2-5.0); Alkaline Phosphatase 68 U/L (45-117); Anion Gap 2 (5-15); BUN 21 mg/dL (7-18); Calcium,Total 8.8 mg/dL (8.5-10.1); Chloride 113 mmol/L (98-107); Creatinine, Serum 1.05 mg/dL (0.55-1.02); EST Glomerular Filtration Rate 53 mL/min (>60); Est Glom Filt Rate - Afr Amer 64 mL/min (>60); Free T3 2.1 pg/mL (2.18-3.98); Globulin 3.1 g/dL (2.2-4.2); Glucose 98 mg/dL (74-106); Magnesium 2.4 mg/dL (1.6-2.6); Potassium 4.1 mmol/L (3.5-5.1); Protein, Total 6.8 g/dL (6.4-8.2); Sodium Level 143 mmol/L (136-145); T4 Total, Thyroxin 9.1 ug/dL (4.8-13.9); Thyroid Stim Hormone (TSH) 2.24 uIU/mL (0.358-3.74)
[2023-12-23 11:45] LABS: Cholesterol 208 mg/dL (200); High Density Lipoprotein 78 mg/dL; Triglycerides 72 mg/dL; Very Low Density Lipoprotein 14 mg/dL (5-40)
== END | disposition home or self-care (01) ==
LOC: LAB 08:13
PROVIDERS: PCP Family Medicine; Referring Provider Internal Medicine Cardiovascular Disease; Visit Provider Internal Medicine Cardiovascular Disease
DX: E03.9 Hypothyroidism, unspecified (principal); E78.5 Hyperlipidemia, unspecified; I25.10 Atherosclerotic heart disease of native coronary artery without angina pectoris; I10 Essential (primary) hypertension; Z86.39 Personal history of other endocrine, nutritional and metabolic disease
CPT/HCPCS: 36415; 80053; 80061; 83735; 84436; 84443; 84481

== ENCOUNTER → 2024-05-18 | Outpatient (CLI) | payer MEDICARE, OTHER, SELFPAY ==
--- NOTE | 2024-05-18 12:58 | CDU_ITS ---
Reason For Study: Lightheadedness Rt. Velocities/BP Lt. Velocities/BP Prox CCA 64.4/12.7 cm/sec. Prox CCA 81.4/10.2 cm/sec. Mid CCA 62.2/12.7 cm/sec. Mid CCA 59.4/17.9 cm/sec. Dist CCA 75.1/16.8 cm/sec. Dist CCA 56.6/12.2 cm/sec. Prox ICA 67.6/16.2 cm/sec. Prox ICA 39.9/9.7 cm/sec. Mid ICA 87.2/19.0 cm/sec. Mid ICA 51.3/12.6 cm/sec. Dist ICA 53.9/15.1 cm/sec. Dist ICA 72.6/18.4 cm/sec. Rt. ICA/CCA = 1.4. Lt. ICA/CCA = 1.2. Prox ECA 69.5/7.1 cm/sec. Prox ECA 61.4/7.6 cm/sec. Rt. Vert. 42.4/11.7 cm/sec. Lt. Vert. 41.4/10.9 cm/sec. Right Extracranial There is intimal thickening but no significant atherosclerotic plaque noted in the right common carotid artery. There is intimal thickening but no significant atherosclerotic plaque noted in the right internal carotid artery. The right internal carotid artery is very tortuous. There is intimal thickening but no significant atherosclerotic plaque noted in the right external carotid artery. Left Extracranial There is intimal thickening but no significant atherosclerotic plaque noted in the left common carotid artery. There is intimal thickening but no significant atherosclerotic plaque noted in the left internal carotid artery. The left internal carotid artery is very tortuous. There is intimal thickening but no significant atherosclerotic plaque noted in the left external carotid artery. Antegrade flow is noted in the left vertebral artery. Procedure Carotid Duplex 28920. This is a Carotid Duplex examination using B-mode, color flow and specral Doppler. The exam was diagnostic. Exam performed in department. VL/Carotid Duplex Ultrasound Interpretation Summary Normal right extracranial internal carotid. Normal left extracranial internal carotid. Patent and antegrade vertebrals bilaterally. Ordering Physician: Valentín Mims Referring Physician: Abdiel Salazar Performed By: Ger Tavera RVT
== END | disposition home or self-care (01) ==
LOC: CVS 12:57
PROVIDERS: PCP Family Medicine; Referring Provider Nurse Practitioner Family; Visit Provider Nurse Practitioner Family
DX: I65.22 Occlusion and stenosis of left carotid artery (principal)
CPT/HCPCS: 93880

== ENCOUNTER → 2024-06-02 | Outpatient (CLI) | payer MEDICARE, OTHER, SELFPAY ==
--- NOTE | 2024-06-02 13:16 | CT_ITS ---
STUDY: CT CHEST T ABDOMEN WITHOUT CONTRAST REASON FOR EXAM: Female, 89 years old. CP RADIATION DOSAGE (If Supplied By Facility): CTDIvol = ( 27.56 ) mGy, DLP = ( 1378.14 ) mGycm TECHNIQUE: Transaxial imaging was performed without the administration of intravenous contrast material. Cardiac over read examination. Individualized dose optimization techniques were used for this CT. COMPARISON: Comparison is made with prior study April 15, 2023. FINDINGS: CHEST The lungs are normal. There is no demonstrated pleural abnormality. There are calcifications of the coronary arteries. Minimal posterior pericardial thickening. There are small lymph nodes within the mediastinum, which are normal in size and morphology most compatible with reactive lymph hyperplasia. Normal hilar regions. Normal unenhanced pulmonary arteries. Normal aorta arch and descending thoracic aorta. There are degenerative changes of the thoracic spine. There is no demonstrated abnormality of the visualized upper abdomen. CT/Limited Chest CT Cardiac Only IMPRESSION: Coronary artery calcification. Electronically Signed: José Levin MD at 8:31 EDT ,
[2024-06-02 13:32] VITALS: BP 138/72; PULSE 68; RESP 18; TEMP 36.1; O2SAT 98; BMI 27.3
[2024-06-02 13:52] LABS: CREATININE FINGERSTICK 1.5 mg/dL (0.55-1.02)
[2024-06-02 13:58] VITALS: BP 98/52; PULSE 64
[2024-06-02] MEDS: Nitroglycerin SL (ED/IMG/CATH) 0.4 MG TABLET SL (13:58)
[2024-06-02] MEDS: 0.9% Saline Lock 10 ML Syringe IV (14:01)
[2024-06-02 14:02] VITALS: BP 114/69; PULSE 59; RESP 18; O2SAT 92
--- NOTE | 2024-06-02 16:51 | CCTA_ITS ---
CCTA w/Cont Coronary Arteries Date of Study:: 06/02/24 Chest pain Coronary Calcium Scoring: High-resolution Computed Tomographic imaging of the chest was performed on [06/02/2024], with particular attention paid to the coronary arteries. Intravenous contrast agent was administered per protocol and images reconstructed and displayed. LEFT MAIN CORONARY ARTERY: Arises from the left coronary cusp with no significant atherosclerotic plaquing or stenosis noted. Bifurcates into left anterior descending artery and left circumflex artery. [] LEFT ANTERIOR DESCENDING CORONARY ARTERY: Medium size vessel with eccentric multiple areas in the proximal region of mild calcification. No high-grade stenosis is noted in the vessel. The vessel courses towards the apex of the ventricle. The coronary calcium score is noted to be 180. [] LEFT CIRCUMFLEX CORONARY ARTERY: Nondominant vessel with no significant atherosclerotic plaquing noted. No occlusive disease is present. Coronary calcium score is 0. [] RIGHT CORONARY ARTERY: Dominant right coronary artery with no significant atherosclerotic plaquing noted. Good lumen visualized with no stenosis present. Coronary calcium score of 0. CORONARY CALCIUM SCORE: 180. Between the 50th and 75th percentile. Conclusion: Coronary CT angiogram demonstrating no significant obstructive coron adonay disease noted Mild coronary calcification present in the left anterior descending artery territory. []
== END | disposition home or self-care (01) ==
PROVIDERS: PCP Family Medicine; Referring Provider Nurse Practitioner Family; Visit Provider Nurse Practitioner Family
DX: Z01.812 Encounter for preprocedural laboratory examination (principal); R07.9 Chest pain, unspecified
CPT/HCPCS: 75571; 75574; 76380; Q9967; A4216

== ENCOUNTER → 2024-10-15 | Outpatient (CLI) | payer MEDICARE, OTHER, SELFPAY ==
[2024-10-15 17:54] LABS: Absolute Lymphocyte Count 1.54 X10^3/uL (0.83-4.51); Basophil# 0.04 X10^3/uL; Basophil% 0.5 % (0-1); Eosinophil# 0.22 X10^3/uL; Eosinophils% 2.9 % (0-5); Hematocrit 36.9 % (37-47); Hemoglobin 11.7 g/dL (12.0-15.0); Lymphocyte # 1.54 X10^3/ul (0.83-4.51); Lymphocyte % 20.3 % (19-41); Mean Corp Hgb Conc 31.7 g/dL (32-36); Mean Corpuscular Hgb 29.7 pg (27.0-32.0); Mean Corpuscular Volume 93.7 fL (81-99); Mean Platelet Vol. 10.9 fl (6.2-12.0); Monocyte# 0.76 X10^3/uL; NRBC Flagged by Analyzer 0 % (0-5); Neutrophil # 4.96 X10^3/uL (2.7-7.7); Neutrophil % 65.6 % (47-70); Platelet Count 248 K/mm3 (150-450); RBC Distribution Width CV 13.4 % (11.6-14.6); Red Blood Count 3.94 M/mm3 (4.2-5.4); White Blood Count 7.6 K/mm3 (4.4-11.0)
[2024-10-15 18:08] LABS: Erythrocyte Sedimentation Rate 21 mm/hr (0-30)
[2024-10-15 18:22] LABS: ALB/GLOB Ratio 1.2 RATIO (0.9-2.4); AST(SGOT) 25 U/L (15-37); Alanine Aminotransfer ALT/SGPT 25 U/L (13-56); Albumin, Serum 3.8 g/dL (3.2-5.0); Alkaline Phosphatase 65 U/L (45-117); Anion Gap 8 (5-15); BUN 25 mg/dL (7-18); CRP < 2.90 mg/L (0.0-3.0); Calcium,Total 8.9 mg/dL (8.5-10.1); Chloride 108 mmol/L (98-107); Creatinine, Serum 1.04 mg/dL (0.55-1.02); EST Glomerular Filtration Rate 53 mL/min (>60); Est Glom Filt Rate - Afr Amer 64 mL/min (>60); Globulin 3.2 g/dL (2.2-4.2); Glucose 84 mg/dL (74-106); Sodium Level 137 mmol/L (136-145)
== END | disposition home or self-care (01) ==
LOC: MFPLAB 13:52
PROVIDERS: PCP Family Medicine; Referring Provider Family Medicine; Visit Provider Family Medicine
DX: R53.83 Other fatigue (principal)
CPT/HCPCS: 36415; 80053; 85025; 85652; 86140

== ENCOUNTER → 2025-01-28 | Outpatient (CLI) | payer MEDICARE, OTHER, SELFPAY ==
[2025-01-28 18:05] LABS: Absolute Lymphocyte Count 1.54 X10^3/uL (0.83-4.51); Absolute Neutrophil Count 3.3 X10^3/uL (2.0-7.7); Basophil# 0.05 X10^3/uL; Basophil% 0.8 % (0-1); Eosinophil# 0.39 X10^3/uL; Eosinophils% 6.4 % (0-5); Hematocrit 36.7 % (37-47); Hemoglobin 11.9 g/dL (12.0-15.0); Lymphocyte # 1.54 X10^3/ul (0.83-4.51); Lymphocyte % 25.3 % (19-41); Mean Corp Hgb Conc 32.4 g/dL (32-36); Mean Corpuscular Hgb 30.3 pg (27.0-32.0); Mean Corpuscular Volume 93.4 fL (81-99); Mean Platelet Vol. 11.2 fl (6.2-12.0); Monocyte# 0.77 X10^3/uL; Monocyte% 12.6 % (0-10); NRBC Flagged by Analyzer 0 % (0-5); Neutrophil % 54.2 % (47-70); Platelet Count 218 K/mm3 (150-450); RBC Distribution Width CV 14.3 % (11.6-14.6); RBC Distribution Width SD 49.7 fl (35.1-43.9); Red Blood Count 3.93 M/mm3 (4.2-5.4); White Blood Count 6.1 K/mm3 (4.4-11.0)
[2025-01-28 18:30] LABS: ALB/GLOB Ratio 1.7 RATIO (0.9-2.4); AST(SGOT) 26 U/L (<=31); Alanine Aminotransfer ALT/SGPT 19 U/L (<=34); Albumin, Serum 4.4 g/dL (3.4-4.8); Alkaline Phosphatase 63 U/L (35-104); Anion Gap 12 (5-15); BUN 32 mg/dL (4-19); BUN/Creat Ratio 31.4 RATIO (10-20); Calcium,Total 9.5 mg/dL (7.6-11.0); Carbon Dioxide 21.7 mmol/L (21.0-32.0); Chloride 107 mmol/L (98-108); Creatinine, Serum 1.02 mg/dL (0.70-1.20); EST Glomerular Filtration Rate 53 (>60); Globulin 2.6 g/dL (2.2-4.2); Glucose 84 mg/dL (70-99); Potassium 4.5 mmol/L (3.3-5.1); Sodium Level 140 mmol/L (133-145); Total Bilirubin 0.32 mg/dL (0.00-1.30)
[2025-01-28 18:55] LABS: Hemoglobin A1c 5.7 % (<=5.6)
== END | disposition home or self-care (01) ==
LOC: MTLAB 14:11
PROVIDERS: PCP Family Medicine; Referring Provider Family Medicine; Visit Provider Family Medicine
DX: R42 Dizziness and giddiness (principal); J84.9 Interstitial pulmonary disease, unspecified; E03.9 Hypothyroidism, unspecified; I10 Essential (primary) hypertension
CPT/HCPCS: 36415; 80053; 83036; 84439; 84443; 85025

== ENCOUNTER → 2025-04-11 | Outpatient (CLI) | payer MEDICARE, OTHER, SELFPAY ==
--- NOTE | 2025-04-11 12:57 | RAD_ITS ---
PROCEDURE: FOREARM 2 VIEWS 04/11/2025 REASON FOR EXAM: RADICULAR RIGHT ARM PAIN. TECHNIQUE: FOREARM 2 VIEWS COMPARISON: None. FINDINGS: Mild osteopenia of the visualized bones. Degenerative joint disease. No fracture or dislocation is seen. No lytic or blastic bone lesion is noted. RAD/Forearm 2 Views IMPRESSION: No evidence for acute abnormality. Reading [facility]
--- NOTE | 2025-04-11 12:57 | RAD_ITS ---
PROCEDURE: HUMERUS MIN 2 VIEWS 04/11/2025 REASON FOR EXAM: RADICULAR RIGHT ARM PAIN TECHNIQUE: HUMERUS MIN 2 VIEWS COMPARISON: No FINDINGS: Moderate AC joint and glenohumeral joint osteoarthritis. No acute bone or soft tissue pathology. RAD/Humerus min 2 Views IMPRESSION: No acute findings. Reading Location: [place] [address]
--- NOTE | 2025-04-11 12:57 | RAD_ITS ---
PROCEDURE: CERV SPINE 4 OR 5 VIEWS 04/11/2025 REASON FOR EXAM: RADICULAR PAIN IN RIGHT ARM TECHNIQUE: CERV SPINE 4 OR 5 VIEWS COMPARISON: None FINDINGS: Normal cervical lordosis. Marked degree of disc space narrowing and spondylosis at the C5-C6 and C6-C7 levels. Anterior spondylosis at the C4-C5 level. Facet joint osteoarthritis. Findings suggestive of neural foraminal stenosis of the C5-C6 level. RAD/Cerv Spine 4 or 5 Views IMPRESSION: MODERATE CERVICAL DEGENERATIVE CHANGES. Narrowing of the intervertebral foramen at the C5-C6 level. Reading Location: [id number]
[2025-04-11 15:31] LABS: Hematocrit 35.6 % (37-47); Hemoglobin 11.7 g/dL (12.0-15.0); Immature Granulocytes Count 0.050 X10^3/uL (0.0-0.0); Mean Corp Hgb Conc 32.9 g/dL (32-36); Mean Corpuscular Volume 91.8 fL (81-99); Mean Platelet Vol. 10.1 fl (6.2-12.0); NRBC Flagged by Analyzer 0 % (0-5); Platelet Count 294 K/mm3 (150-450); RBC Distribution Width CV 14.0 % (11.6-14.6); RBC Distribution Width SD 47.5 fl (35.1-43.9); Red Blood Count 3.88 M/mm3 (4.2-5.4); White Blood Count 5.4 K/mm3 (4.4-11.0)
[2025-04-11 18:11] LABS: AST(SGOT) 23 U/L (<=31); Alanine Aminotransfer ALT/SGPT 18 U/L (<=34); Albumin, Serum 4.3 g/dL (3.4-4.8); Alkaline Phosphatase 65 U/L (35-104); Anion Gap 14 (5-15); BUN 25 mg/dL (4-19); BUN/Creat Ratio 24.9 RATIO (10-20); CRP 5.88 mg/L (0.0-3.0); Calcium,Total 9.4 mg/dL (7.6-11.0); Carbon Dioxide 20.8 mmol/L (21.0-32.0); Chloride 107 mmol/L (98-108); Free T3 2.5 pg/mL (2.18-3.98); Globulin 2.9 g/dL (2.2-4.2); Glucose 82 mg/dL (70-99); Potassium 4.2 mmol/L (3.3-5.1); T4 Total, Thyroxin 7.8 ug/dL (4.8-13.9)
[2025-04-13 16:09] LABS: Lyme Scn Total Ab w/Rflx Negative (Negative); PROEL- A/G Ratio 1.4 (0.7-1.7); PROEL- Albumin 4.0 g/dL (2.9-4.4); PROEL- Alpha-1 Globulin 0.2 g/dL (0.0-0.4); PROEL- Alpha-2 Globulin 0.8 g/dL (0.4-1.0); PROEL- Beta Globulin 1.1 g/dL (0.7-1.3); PROEL- Gamma Globulin 0.7 g/dL (0.4-1.8); PROEL- Globulin, Total 2.9 g/dL (2.2-3.9); PROEL- TOTAL PROTEIN 6.9 g/dL (6.0-8.5); PROEL-M-Spike Comment: g/dL (Not Observed)
== END | disposition home or self-care (01) ==
LOC: MTLAB 12:51
PROVIDERS: PCP Family Medicine; Referring Provider Family Medicine; Visit Provider Family Medicine
DX: M79.2 Neuralgia and neuritis, unspecified (principal); E03.9 Hypothyroidism, unspecified; R53.83 Other fatigue
CPT/HCPCS: 36415; 72050; 73060; 73090; 80053; 84165; 84436; 84439; 84443; 84481; 85025; 85652; 86140; 86618

== ENCOUNTER → 2025-04-19 | Outpatient (CLI) | payer MEDICARE, OTHER, SELFPAY ==
--- NOTE | 2025-04-19 15:30 | MRI_ITS ---
PROCEDURE: SPINE CERVICAL (ROUTINE) 04/19/2025 REASON FOR EXAM: RIGHT RADICULAR ARM PAIN TECHNIQUE: SPINE CERVICAL (ROUTINE) Multiplanar and multisequence images were obtained without IV contrast administration. COMPARISON: X-ray cervical spine 04/11/2025. FINDINGS: Vertebrae: Cervical vertebral body heights are preserved. Bone marrow signal is unremarkable. Alignment: Normal. No spondylolisthesis. Spinal Cord: Cervical spinal cord is of normal size and signal intensities. Structures at the foramen magnum are unremarkable. C2-3: Facet joint arthropathy. No foramina stenosis. Mild canal stenosis. C3-4: Disc osteophyte complex measures 2 mm. Facet joint arthropathy. Moderate canal stenosis. Mild bilateral foramina stenosis. C4-5: Disc desiccation. Disc osteophyte complex. Facet joint arthropathy. Mild bilateral foramina stenosis. Mild canal stenosis. C5-6: Disc desiccation. Disc osteophyte complex. Uncovertebral hypertrophy. Facet joint arthropathy. Mild bilateral foramina stenosis. Moderate canal stenosis. C6-7: Disc desiccation. Disc osteophyte complex asymmetric to the left. Moderate left and mild right foramina stenosis. Moderate to severe canal stenosis. C7-T1: No foraminal or canal stenosis. MRI/Spine Cervical (Routine) IMPRESSION: Multilevel degenerate changes predominantly for moderate canal stenosis at C3-C 4, C5-C6 and moderate to severe canal stenosis at C6-C7. Moderate left foramina stenosis at C6-C7. Reading Location: [facility]
== END | disposition home or self-care (01) ==
LOC: MRI 15:28
PROVIDERS: PCP Family Medicine; Referring Provider Family Medicine; Visit Provider Family Medicine
DX: M79.2 Neuralgia and neuritis, unspecified (principal)
CPT/HCPCS: 72141